=== PATIENT | female | born 1985 | race Caucasian/White ===

== ENCOUNTER 2024-03-08 09:42 | Emergency (ER) | payer OTHER, SELFPAY ==
[2024-03-08 09:45] VITALS: BP 144/84; PULSE 101; RESP 20; TEMP 36.5; O2SAT 96; BMI 44.0
--- NOTE | 2024-03-08 10:00 | PC.NURSE ---
dr cuello at bedside
--- NOTE | 2024-03-08 10:09 | CT_ITS ---
PROCEDURE INFORMATION: Exam: CT Maxillofacial With Contrast, Sinus Exam date and time: 03/08/2024 11:28 AM Age: 38 years old Clinical indication: Fever; Additional info: Fever, facial pain maxillary sinuses TECHNIQUE: Imaging protocol: CT Maxillofacial with intravenous contrast. Focus on the sinuses. Radiation optimization: All CT scans at this facility use at least one of these dose optimization techniques: automated exposure control; mA and/or kV adjustment per patient size (includes targeted exams where dose is matched to clinical indication); or iterative reconstruction. Contrast material: ISOVUE; Contrast volume: 100 ml; Contrast route: IV; COMPARISON: No relevant prior studies available. FINDINGS: Frontal sinuses: Normal. No air-fluid levels. Ethmoid sinuses: Bilateral ethmoid air cell inflammatory changes. Sphenoid sinuses: Normal. No air-fluid levels. Maxillary sinuses: Maxillary sinuses well aerated. Nasal cavity: Unremarkable. Orbital cavities: Orbits are normal. Globes are unremarkable. Bones: Unremarkable. Soft tissues: Unremarkable. IMPRESSION: Bilateral ethmoid air cell inflammatory changes.
--- NOTE | 2024-03-08 10:10 | XR_ITS ---
PROCEDURE INFORMATION: Exam: XR Chest Exam date and time: 03/08/2024 10:27 AM Age: 38 years old Clinical indication: Dyspnea TECHNIQUE: Imaging protocol: Radiologic exam of the chest. Views: 1 view. COMPARISON: No relevant prior studies available. FINDINGS: Lungs: Saw indistinct nodular density right mid lung zone as well as lateral to the left heart border inconclusive for pulmonary nodules. No acute infiltrates or overt CHF. Pleural spaces: Unremarkable. No pleural effusion. No pneumothorax. Heart/Mediastinum: Heart appears borderline enlarged. Bones/joints: Unremarkable for age. IMPRESSION: Borderline cardiomegaly with 2 small indistinct nodular densities for which follow-up nonemergent CT chest recommended for further assessment.
--- NOTE | 2024-03-08 10:13 | ED_ITS ---
Discharge Plan Disposition Patient Disposition: Home, Self-Care Prescriptions Prescriptions: New doxycycline hyclate 100 mg capsule 100 mg PO BID 10 Days Qty: 20 0RF Referrals Follow up/Referrals: Bethany Tamez APRN [Primary Care Provider] - See instructions Activity Restrictions/Add. Instructions Additional Instructions/Restrictions: Your symptoms are nonspecific but we will treat a working diagnosis of bacterial sinusitis given your facial pressure and symptoms that you are having. You have mild elevations in your transaminases/LFT please follow-up with primary care doctor to make sure that that is improving. The antibiotic doxycycline has been chosen to treat both your bacterial sinus infection and the possibility of a possible tickborne illness. No evidence of sepsis or meningitis. Please return to the primary care doctor or back to the emergency room with any significant worsening of her symptoms as discussed. Clinical Impressions Clinical Impression: Body aches, Cough, Rash and nonspecific skin eruption, Acute bacterial sinusitis, Abnormal transaminases Discharge ED Provider: Marcos Lee General Adult HPI General Chief complaint: Fever Stated complaint: rash on legs, stiff neck headache chills nausea Time Seen by Provider: 03/08/24 09:55 History of Present Illness HPI narrative: Patient is a 38-year-old female presents today with 1 week of intermittent fever. She has had bodyaches during this time as well. She went to her primary care doctor on Sunday and told her that she had facial pressure and some sinus congestion and was treated with azithromycin and steroids without any significant improvement. The patient states she has had some headache body aches told her primary care doctor she had some neck stiffness and that the primary care doctor told her that if she had a rash to come to the emergency department to be evaluated for meningitis. Patient subsequently developed a rash and was sent to the ED for this reason. However she states that 2 days ago she had a fever that broke Tmax was up to 102 but has been afebrile for the last 48 hours. She states she is able to move her head to the left and right without any significant discomfort she has no photophobia. She does not feel any significantly worse than she has recently. She states that her facial pressure has gotten worse she has significant pain with leaning forward. She also has had a cough. She denies any other past significant medical problems. No tick bite that she is aware. Related Data Previous Rx's Medication Instructions Recorded doxycycline hyclate 100 mg capsule 100 mg PO BID 10 days #20 caps 03/08/24 Allergies Allergy/AdvReac Type Severity Reaction Status Date / Time loracarbef [From Lorabid] Allergy Hives Verified 03/08/24 10:30 codeine AdvReac Other Verified 03/08/24 10:30 [facility] Disclaimer: The information contained in this section may have been updated after the patient was seen, as this information can be updated by other users. Social History Smoking Status: Current every day smoker alcohol intake: never current occupational status: other Travel in the last 8 weeks: None ROS Obtained: Yes All systems reviewed & no additional complaints except as documented Physical Exam General General appearance: alert Head Head exam: atraumatic and normocephalic Neck Neck exam: Present full ROM; Absent meningismus Respiratory Respiratory exam: Present normal lung sounds bilaterally; Absent respiratory distress Cardiovascular Cardiovascular exam: Present regular rate and normal rhythm Abdominal Exam Abdominal exam: Present soft; Absent distention or tenderness Extremities Exam Extremities exam: Present other (Diffuse macular erythematous rash no evidence of petechiae or purpura) Neurological Exam Neurological exam: Present alert, oriented X3, CN II-XII intact and normal gait; Absent motor sensory deficit Medical Decision Making Henrry Inquiry Pt receiving controlled substance: No Vital Signs: 03/08/24 09:45 03/08/24 10:32 03/08/24 11:00 Temperature 97.7 F Temperature Source Oral Pulse Rate 90 83 Pulse Rate [Right] 101 H Respiratory Rate 20 18 Blood Pressure 107/61 L 107/63 L Blood Pressure [Right Arm] 144/84 H Blood Pressure Mean 79 78 Blood Pressure Mean [Right Arm] 104 02 Sat by Pulse Oximetry 96 96 96 Oxygen Delivery Method Room Air 03/08/24 12:30 03/08/24 12:45 Temperature Temperature Source Oral Pulse Rate 74 Pulse Rate [Right] Respiratory Rate 18 Blood Pressure 105/70 L Blood Pressure [Right Arm] Blood Pressure Mean 80 Blood Pressure Mean [Right Arm] 02 Sat by Pulse Oximetry 96 Oxygen Delivery Method Lab Data Lab results reviewed: Yes I reviewed the patient's lab results. Lab Results 03/08/24 10:10: WBC 7.2, RBC 3.91 L, Hgb 12.2, Hct 36.3 L, MCV 92.8, MCH 31.3 H, MCHC 33.7, RDW 14.7, Plt Count 149, MPV 9.1, Neut % (Auto) 73.3, Lymph % (Auto) 22.6, [place] % (Auto) 3.6, Eos % (Auto) 0.3, Baso % (Auto) 0.2, Neut # (Auto) 5.3, Lymph # (Auto) 1.6, Pitt # (Auto) 0.3, Eos # (Auto) 0.0, Baso # (Auto) 0.0, ESR 35 H, Sodium 136, Potassium 3.1 L, Chloride 106, Carbon Dioxide 26, Anion Gap 7.1, BUN 11, Creatinine 0.80, Estimated Creat Clear 88, Estimated GFR 79, Est GFR ( Amer) 96, Glucose 131 H, Lactate 1.5, Calcium 8.0 L, Total Bilirubin 0.5, AST 82 H, ALT 135 H, Alkaline Phosphatase 93, C-Reactive Protein 64.8 H, Total Protein 6.3, Albumin 3.4 L, Globulin 2.9, Albumin/Globulin Ratio 1.2, Procalcitonin 0.175, Serum HCG, Qual Negative, Monoscreen Negative 03/08/24 10:22: Chlamy pneumoniae PCR Not detected, Adenovirus (PCR) Not detected, B. pertussis DNA (PCR) Not detected, Coronavirus OC43 (PCR) Not detected, Coronavirus HKU1 (PCR) Not detected, Coronavirus 229E (PCR) Not detected, SARS-CoV-2 (PCR) Not detected, Coronavirus NL63 (PCR) Not detected, Human Metapneumovir PCR Not detected, Influenza A (H1) PCR Not detected, Influ A (H1N1/09) PCR Not detected, Influenza A (H3) PCR Not detected, Influenza Type A (PCR) Not detected, Influenza Type B (PCR) Not detected, M. pneumoniae (PCR) Not detected, Parainfluenza 1 (PCR) Not detected, Parainfluenza 2 (PCR) Not detected, Parainfluenza 3 (PCR) Not detected, Parainfluenza 4 (PCR) Not detected, RSV (PCR) Not detected, Entero/Rhino (PCR) Not detected 03/08/24 12:06: Urine Color Yellow, Urine Appearance Clear, Urine pH 6.5, Ur Specific [place] <= 1.005, Urine Protein Negative, Urine Glucose (UA) Negative, Urine Ketones Negative, Urine Blood Negative, Urine Nitrate Negative, Urine Bilirubin Negative, Urine Urobilinogen 0.2, Ur Leukocyte Esterase Negative, Urine RBC None, Urine WBC Occasional, Ur Squamous Epith Cells 5-10, Urine Bacteria Trace 03/08/24 10:10 03/08/24 10:10 Orders (Tests/Meds): ED MEDICATIONS Discontinued Medications Generic Name Dose Route Start Last Admin Trade Name Freq PRN Reason Stop Dose Admin Lactated Ringer's 1,000 mls @ 999 mls/hr 03/08/24 10:15 03/08/24 10:26 Lactated Ringer's 1000 Ml Bag IV 03/08/24 11:15 999 mls/hr .Q1H1M RAFAEL Administration Iopamidol 100 ml 03/08/24 11:31 03/08/24 11:32 Iopamidol-370 (76%);100ml Bottle IV 03/08/24 11:32 100 ml ONCE ONE Administration Ketorolac Tromethamine 15 mg 03/08/24 10:09 03/08/24 10:26 Ketorolac 30mg/Ml Vial IV 03/08/24 10:10 15 mg ONCE ONE Administration Sodium Chloride 10 ml 03/08/24 11:31 03/08/24 11:32 Sodium Chloride 0.9% 10ml Syr (Rad Only) IV 03/08/24 11:32 10 ml ONCE ONE Administration ORDERS Category Date Time Status CT sinus w con Stat Cat Scan 03/08/24 10:09 Completed CXR --portable [XR chest portable] Stat Exams 03/08/24 10:10 Completed CBC w/Auto Diff [Complete Blood Count Auto Diff] Stat Lab 03/08/24 10:10 Completed CMP [Comprehensive Metabolic Panel] Stat Lab 03/08/24 10:10 Completed CRP [C-Reactive Protein] Stat Lab 03/08/24 10:10 Completed ESR [Erythrocyte Sedimentation Rate] Stat Lab 03/08/24 10:10 Completed Full Resp Panel w/COVID ([facility]) Routine Lab 03/08/24 10:22 Completed HCG Qualitative, Serum Stat Lab 03/08/24 10:10 Completed Lactic Acid Stat Lab 03/08/24 10:10 Completed Monoscreen (Rapid) Stat Lab 03/08/24 10:10 Completed Procalcitonin Stat Lab 03/08/24 10:10 Completed UA [Urinalysis and Microscopic] Stat Lab 03/08/24 12:06 Completed Blood Culture Stat Micro 03/08/24 10:10 Received Medical Decision Narrative: Well-appearing 38-year-old female presenting today with 1 week of intermittent fevers and chills now with a macular rash. Rash appears to be most consistent with an exanthem of a virus. Patient is nontoxic in appearance has no meningismus I do not suspect bacterial meningitis viral meningitis is also very unlikely. She has had a cough and sinus pressure most likely a viral upper respiratory infection possibly with superimposed bacterial sinusitis. Given the duration of symptoms we will get a CT scan of her face to evaluate for any bony erosion etc. Also get a chest x-ray to evaluate for pneumonia. Blood cultures urinalysis also being performed in addition to full respiratory viral panel. She has been reassured and feels much better that we would not be working up meningitis and that that is very unlikely at the moment. Tickborne illnesses are on the differential but no definitive tick bite. Will attempt alternative diagnosis at the moment and will reassess after IV fluids Toradol workup is complete. Reassessment 12:[address] scan was performed on first interpreted shows no definitive significant air-fluid levels or thickening of the sinuses. There is some nonspecific ethmoid inflammatory change but this is not in the location where she has symptoms working diagnosis will still be bacterial sinusitis. Chest x-ray performed I personally interpreted which shows no acute cardiopulmonary emergency. Labs otherwise unremarkable Monospot negative full respiratory viral panel negative she does have nonspecific inflammatory markers that are elevated but no evidence of sepsis. She looks very good and nontoxic on my reassessment and is feeling better. I will prescribe doxycycline which will both cover bacterial sinus infection as well as possible tickborne illnesses which I did not send any titers or infectious workup for. Blood cultures have been sent. She has been given return precautions there remains some diagnostic uncertainty and she is aware of this. Other causes of fever such as malignancy or rheumatologic conditions etc. are still in the differential and she is aware that if her fever returns and continues to be refractory that she is to return for hospitalization. Patient was discharged in stable and improved condition. On serial neurologic assessments she has normal has no evidence of meningismus is very nontoxic meningitis do very well likely longoria and risk of a lumbar puncture I think far outweighs any benefit at the moment. Critical Care Critical Care Time Critical Care Time: No
--- NOTE | 2024-03-08 10:23 | PC.NURSE ---
covid swab sent to lab
[2024-03-08 10:25] LABS: Adenovirus,PCR Not Detected (NotDetected); Bordetella Pertussis Not Detected (NotDetected); Chlamydophila Pneumoniae, PCR Not Detected (NotDetected); Coronavirus 19, PCR Not Detected (NotDetected); Coronavirus 229E Not Detected (NotDetected); Coronavirus NL63 Not Detected (NotDetected); Coronavirus OC43 Not Detected (NotDetected); Coronovirus HKU1,PCR Not Detected (NotDetected); Human Metapneumovirus Not Detected (NotDetected); Influenza A, PCR Not Detected (NotDetected); Influenza AH1, 2009 Not Detected (NotDetected); Influenza AH1, PCR Not Detected (NotDetected); Influenza AH3,PCR Not Detected (NotDetected); Influenza B, PCR Not Detected (NotDetected); Mycoplasma Pneumoniae, PCR Not Detected (NotDetected); Parainfluenza 1, PCR Not Detected (NotDetected); Parainfluenza 2, PCR Not Detected (NotDetected); Parainfluenza 3, PCR Not Detected (NotDetected); Parainfluenza 4, PCR Not Detected (NotDetected); Respiratory Syncytial Virus Not Detected (NotDetected); Rhinovirus/Enterovirus Not Detected (NotDetected)
[2024-03-08 10:25] LABS: Basophils % 0.2 % (0.1-2.0); Eosinophils % 0.3 % (0.1-12.0); Hematocrit 36.3 % (37.0-47.0); Hemoglobin 12.2 g/dL (12.2-16.2); Lymphocytes # 1.6 K/mm3 (0.7-4.5); Lymphocytes % 22.6 % (10-50); Mean Corpuscular HGB Conc 33.7 g/dL (31.8-35.4); Mean Corpuscular Hemoglobin 31.3 pg (27.0-31.2); Mean Corpuscular Volume 92.8 fl (81-99); Mean Platelet Volume 9.1 fl (7.4-10.4); Monocytes # 0.3 K/mm3 (0.1-1.0); Monocytes % 3.6 % (1.7-9.3); Neutrophils # 5.3 K/mm3 (1.8-7.8); Neutrophils % 73.3 % (37.0-80.0); Platelet Count 149 K/mm3 (142-424); Red Blood Count 3.91 M/mm3 (4.20-5.40); Red Cell Distribution Width 14.7 % (11.5-17.5); White Blood Count 7.2 K/mm3 (4.8-10.8)
[2024-03-08] MEDS: LACTATED RINGERS 1000ML 1,000 ML 999 ML IV (10:26)
[2024-03-08] MEDS: KETOROLAC 30MG/ML VIAL 15 MG IV (10:26)
[2024-03-08 10:32] VITALS: BP 107/61; PULSE 90; O2SAT 96
[2024-03-08 10:35] LABS: Alanine Aminotransferase 135 U/L (12-78); Albumin Level 3.4 g/dl (3.5-5.0); Albumin/Globulin Ratio 1.2 (1.1-1.8); Alkaline Phosphatase 93 U/L (38-126); Anion Gap 7.1 mEq/L (5-15); Aspartate Amino Transferase 82 U/L (14-36); Bilirubin,Total 0.5 mg/dl (0.2-1.3); Blood Urea Nitrogen 11 mg/dl (7-17); Carbon Dioxide 26 mmol/L (22.0-30.0); Chloride 106 mmol/L (98-107); Creatinine Clearance Estimated 88 mL/min (50-200); Estimated Glomerular Filt Rate 79 ml/min (>60); GFR (African American) 96 ML/MIN (>60); Globulin 2.9 g/dL (1.3-3.2); Glucose 131 mg/dl (74-100); Potassium 3.1 mmoL/L (3.5-5.1); Sodium 136 mmol/L (136-145); Total Protein,Serum 6.3 g/dl (6.3-8.2)
[2024-03-08 10:36] LABS: Lactic Acid 1.5 mmol/L (0.7-2.1)
[2024-03-08 10:41] LABS: C-Reactive Protein 64.8 mg/L (0-4)
[2024-03-08 10:43] LABS: Monoscreen (Rapid) Negative (Negative)
[2024-03-08 10:51] LABS: HCG Qualitative, Serum Negative (Negative)
[2024-03-08 10:54] LABS: Procalcitonin 0.175 ng/mL (0.0-2.0)
[2024-03-08 11:00] VITALS: BP 107/63; PULSE 83; RESP 18; O2SAT 96
[2024-03-08 11:09] LABS: Erythrocyte Sedimentation Rate 35 mm/hr (0-20)
--- NOTE | 2024-03-08 11:21 | PC.NURSE ---
pt to rad
--- NOTE | 2024-03-08 11:31 | PC.NURSE ---
pt back to room from [facility]
[2024-03-08] MEDS: IOPAMIDOL-370 (76%);100ML BOTTLE 100 ML IV (11:32)
[2024-03-08] MEDS: SODIUM CHLORIDE 0.9% 10ML SYR (RAD ONLY) 10 ML IV (11:32)
--- NOTE | 2024-03-08 12:02 | PC.NURSE ---
pt ambulatory to restroom without complications
--- NOTE | 2024-03-08 12:07 | PC.NURSE ---
pt reports her rash has now spread up her arms and onto her chest; Dr. Lee has been notified.
[2024-03-08 12:09] LABS: Microscopic, Urine URINE MICROSCOPIC (MICROSCOPIC)
[2024-03-08 12:11] LABS: Appearance,Urine CLEAR (Clear); Bilirubin,Urine Negative (Negative); Blood, Urine Negative (Negative); Color,Urine YELLOW (Yellow); Glucose,Urine (UA) Negative (Negative); Ketones,Urine Negative (Negative); Leukocyte Esterase,Urine Negative (Negative); Nitrate,Urine Negative (Negative); PH,Urine 6.5 (5.0-8.5); Protein,Urine Negative (Negative); Specific Gravity, Urine <= 1.005 (1.005-1.030); Urobilinogen,Urine 0.2 EU/dl (0.2)
[2024-03-08 12:30] VITALS: BP 105/70; PULSE 74; RESP 18; O2SAT 96
[2024-03-08 12:32] LABS: Bacteria,Urine Trace /lpf; WBC,Urine Occasional #/hpf (0-3)
--- NOTE | 2024-03-08 12:44 | PC.NURSE ---
Dr. Lee at bedside
[2024-03-08 13:02] VITALS: BP 105/71; PULSE 80; RESP 18; TEMP 36.8; O2SAT 98
== END 2024-03-08 13:05 | disposition home or self-care (01) ==
PROVIDERS: Emergency Provider Student in an Organized Health Care Education/Training Program; PCP Nurse Practitioner
DX: J01.80 Other acute sinusitis (principal); A49.9 Bacterial infection, unspecified; E87.6 Hypokalemia; R74.01 Elevation of levels of liver transaminase levels; R05.9 Cough, unspecified; R21 Rash and other nonspecific skin eruption; F17.210 Nicotine dependence, cigarettes, uncomplicated
CPT/HCPCS: 70487; 71045; 80053; 81001; 83605; 84145; 84703; 85025; 85651; 86140; 86318; 87040; 87581; 87632; 87635; 87798; 96361; 96374; 99284; J1885; J7120; Q9967

== ENCOUNTER 2024-10-28 11:51 | Emergency (ER) | payer OTHER, SELFPAY ==
[2024-10-28 11:51] VITALS: BP 175/66; PULSE 77; RESP 19; TEMP 36.7; O2SAT 100; BMI 42.3
--- NOTE | 2024-10-28 11:54 | ECG_ITS ---
APPROVED REPORT Exam: Resting ECG HR:68 bpm ECG Measurements Heart Rate 68 AXES NE 148 P 57 QRSd 93 QRS -28 QT 411 T 1 QTc 428 Conclusion Sinus rhythm Old ischemic change Electronically signed by : RUSTAM WELCH, 10/28/2024 14:47:32
--- NOTE | 2024-10-28 12:00 | HMH.EDGENADL ---
Discharge Plan Disposition Patient Disposition: Home, Self-Care Condition: Good Prescriptions Prescriptions: No Action doxycycline hyclate 100 mg capsule 100 mg PO BID 10 Days Qty: 20 0RF Referrals Follow up/Referrals: Bethany Tamez APRN [Primary Care Provider] - See instructions Activity Restrictions/Add. Instructions Additional Instructions/Restrictions: As we discussed please contact your microbiology manager for follow-up as soon as they are available. If you have any worsening signs or symptoms please return to the ER as needed including increasing pain inability to tolerate oral intake. I recommend continuing the regimen that you are on with Protonix twice a day famotidine twice a day and avoid times. Also recommend sitting up for 30 minutes to an hour after any eating. Clinical Impressions Clinical Impression: Acute epigastric pain Print Language Print Language: Japanese Discharge ED Provider: Cholo Campo General Adult HPI <ANETTE Ordaz - Last Filed: 10/28/24 14:08> General Chief complaint: Chest Pain Stated complaint: Chest Pain Time Seen by Provider: 10/28/24 11:59 History of Present Illness HPI narrative: Patient presents for evaluation of heartburn . Patient states that she has a known history of Cross's esophagus and around 10:00 last night began having an episode of burning epigastric discomfort. She took Protonix last night and again this morning without relief. Patient states that the pain woke her up from sleep last night. It has been persistent since 10 PM last night. She then took famotidine [id number] again without relief. It is not radiated it does not have any worsening or relieving factors. Patient is tolerant of oral intake and does not change the character of the pain. She does not have a history of cardiovascular disease and denies shortness of breath hemoptysis hematochezia melena reports nausea and vomiting last night but none today and no diarrhea. Additionally, patient reports that approximately 2 hours prior to presentation she began having right upper arm pain and tingling in her thumb and index finger. Patient denies loss of motor or sensory. Related Data Previous Rx's ?Medication ?Instructions ?Recorded doxycycline hyclate 100 mg capsule 100 mg PO BID 10 days #20 caps 03/08/24 Allergies Allergy/AdvReac Type Severity Reaction Status Date / Time loracarbef (From Lorabid) Allergy Hives Verified 03/08/24 10:30 codeine AdvReac Other Verified 03/08/24 10:30 PFSH <ANETTE Ordaz - Last Filed: 10/28/24 14:08> PFS Disclaimer: The information contained in this section may have been updated after the patient was seen, as this information can be updated by other users. Social History (Updated 03/08/24 @ 12:54 by Marcos Lee MD) Smoking Status: Current every day smoker alcohol intake: never current occupational status: other Travel in the last 8 weeks: None Have you lived/traveled outside [place] in past 30 days?: No Contact w/someone who lives/traveled outside US past 30 days?: No Exposure to someone with infectious disease in past 14 days?: No Do you have a fever (greater than 100.4 F or 38 C)?: No Have you tested positive for COVID-19: No Exposed to someone with COVID-19 in past 14 days?: No Do you have a sore throat?: No Do you have a cough?: No Do you have any weakness?: No Do you have any diarrhea?: No Are you experiencing any unusual bleeding?: No Do you have any muscle aches/pain?: No Do you have any abdominal pain?: No Are you experiencing loss of taste or smell?: No <ANETTE Ordaz - Last Filed: 10/28/24 14:08> ROS Obtained: Yes Systems reviewed as appropriate & no additional complaints except as documented Physical Exam <ANETTE Ordaz - Last Filed: 10/28/24 14:08> General General appearance: alert and in no apparent distress Respiratory Respiratory exam: Present normal lung sounds bilaterally Cardiovascular Cardiovascular exam: Present regular rate Neurological Exam Neurological exam: Present alert and oriented X3 Medical Decision Making <ANETTE Ordaz - Last Filed: 10/28/24 14:08> Medical Records Medical records reviewed: Yes I reviewed the patient's medical records. Screening: Per USPSTF and CDC recommendations, given the prevalence of disease in our region, it is our hospital?s policy to screen for HIV and viral Hepatitis for all patients aged 18 and over and those with ongoing risk factors. Henrry Inquiry Pt receiving controlled substance: No Vital Signs: 10/28/24 11:51 10/28/24 13:00 10/28/24 13:02 Temperature 98.0 F Temperature Source Oral Pulse Rate 77 72 Pulse Rate [Right] 77 Respiratory Rate 19 Blood Pressure 100/49 L 109/63 L Blood Pressure [Right Arm] 175/66 H Blood Pressure Mean 66 72 Blood Pressure Mean [Right Arm] 102 Blood Pressure Source [Right Arm] Automatic Cuff 02 Sat by Pulse Oximetry 100 97 99 Oxygen Delivery Method Room Air 10/28/24 14:43 Temperature 98.4 F Temperature Source Pulse Rate 72 Pulse Rate [Right] Respiratory Rate 18 Blood Pressure 109/63 L Blood Pressure [Right Arm] Blood Pressure Mean Blood Pressure Mean [Right Arm] Blood Pressure Source [Right Arm] 02 Sat by Pulse Oximetry Oxygen Delivery Method Lab Data Lab results reviewed: Yes I reviewed the patient's lab results. Lab Results 10/28/24 12:22: WBC 12.9 H, RBC 4.90, Hgb 15.2, Hct 44.1, MCV 90.0, MCH 31.0, MCHC 34.5, RDW 12.6, Plt Count 259, MPV 9.3, Neut % (Auto) 64.7, Lymph % (Auto) 27.3, Benzie % (Auto) 6.7, Eos % (Auto) 0.7, Baso % (Auto) 0.3, Neut # (Auto) 8.3 H, Lymph # (Auto) 3.5, Benzie # (Auto) 0.9, Eos # (Auto) 0.1, Baso # (Auto) 0.0, Sodium 138, Potassium 3.8, Chloride 105, Carbon Dioxide 27, Anion Gap 9.8, BUN 12, Creatinine 0.90, Estimated Creat Clear 80, Estimated GFR 69, Est GFR ( Amer) 83, Glucose 92, Calcium 8.9, Total Bilirubin 0.4, AST 32, ALT 32, Alkaline Phosphatase 78, Troponin I < 0.01, Total Protein 7.2, Albumin 4.5, Globulin 2.7, Albumin/Globulin Ratio 1.7, Lipase 104, HCV Ab ED w/Rflx PCR Qn Negative, HIV Ag/Ab Combo Qual Negative 10/28/24 12:22 10/28/24 12:22 Orders (Tests/Meds): ED MEDICATIONS Discontinued Medications Generic Name Dose Route Start Last Admin Trade Name Freq PRN Reason Stop Dose Admin Acetaminophen 1,000 mg 10/28/24 12:24 10/28/24 12:42 Acetaminophen 1,000mg/100ml Vial IV 10/28/24 12:25 1,000 mg ONCE ONE Administration Belladonna Alkaloids 60 ml 10/28/24 12:24 10/28/24 12:42 Belladonna Alkaloids 60 Ml Ml PO 10/28/24 12:25 60 ml ONCE ONE Administration Dexamethasone Sodium Phosphate 10 mg 10/28/24 13:58 10/28/24 14:07 Dexamethasone 4mg/Ml 5ml Mdv IV 10/28/24 13:59 10 mg ONCE ONE Administration Sodium Chloride 1,000 mls @ 999 mls/hr 10/28/24 12:24 10/28/24 12:42 Sod Chlor 0.9% 1000ml Bag IV 10/28/24 13:24 999 mls/hr .Q1H1M ONE Administration Iopamidol 75 ml 10/28/24 12:49 10/28/24 12:56 Iopamidol-370 (76%);100ml Bottle IV 10/28/24 12:50 75 ml ONCE ONE Administration Ketorolac Tromethamine 15 mg 10/28/24 13:58 10/28/24 14:05 Ketorolac 30mg/Ml Vial IV 10/28/24 13:59 15 mg ONCE ONE Administration Ondansetron HCl 4 mg 10/28/24 12:24 10/28/24 12:42 Ondansetron 4mg/2ml Vial IV 10/28/24 12:25 4 mg ONCE ONE Administration Sodium Chloride 10 ml 10/28/24 12:49 10/28/24 12:56 Sodium Chloride 0.9% 10ml Syr (Rad Only) IV 10/28/24 12:50 10 ml ONCE ONE Administration ORDERS Category Date Time Status CT abdomen pelvis w con Stat Cat Scan 10/28/24 12:25 Completed CXR --portable [XR chest portable] Stat Exams 10/28/24 12:02 Completed Complete Blood Count Auto Diff Stat Lab 10/28/24 12:22 Completed Comprehensive Metabolic Panel Stat Lab 10/28/24 12:22 Completed HIV Combo Stat Lab 10/28/24 12:22 Completed Hepatitis C Ab Qual. W/ RFX Stat Lab 10/28/24 12:22 Completed Lipase Stat Lab 10/28/24 12:22 Completed Troponin I Q3H Lab 10/28/24 15:15 Ordered Troponin I Q3H Lab 10/28/24 18:15 Ordered Troponin I Stat Lab 10/28/24 12:22 Completed HEART Score History (anamnesis): Slightly suspicious ECG: Normal Age: <45 years Risk factors: 3 or more risk factors Troponin: </= normal limit HEART Score: 2 Medical Decision Narrative: In summary patient is a 39-year-old female who presents to the emergency department for evaluation of epigastric abdominal pain and self-described heartburn .. Patient is hemodynamically stable with a blood pressure 175/66 pulse 77 normal sinus rhythm on the bedside monitor breathing 18 times a minute satting at 100% room air upon arrival, afebrile at 98.0. Physical exam is remarkable for discomfort on palpation of the epigastrium but no focal tenderness rebound or guarding or rigidity with normal bowel sounds. There is no pain on palpation on the chest wall. Breath sounds clear and equal bilaterally to the bases without adventitious sounds. Examination of the left upper extremity reveals no palpable pain of the shoulder girdle or elbow and patient has full range of motion of the left upper extremity with no provoking of her symptoms. She does have reproducible tingling on tapping of the median nerve however.. Differential diagnosis includes esophagitis versus gastritis versus ulcer versus pancreatitis versus ACS versus paresthesia versus versus carpal tunnel syndrome versus radiculopathy versus referred pain etc. Initial workup will be conducted with hematologic labs CT scan abdomen pelvis plain film chest x-ray twelve-lead EKG. Initial interventions include crystalloid bolus and GI cocktail for now. Initial workup reviewed by me and her hematologic labs are nonactionable with a negative troponin and more than 12 hours of symptoms a single undetectable troponin suggests noncardiac/ACS cause, lipase is normal, and my informal interpretation of both her chest x-ray and CT abdomen pelvis shows no acute processes. Upon repeat evaluation patient reports that the discomfort in her fingers is gone as well as the rest of her left upper extremity however the burning sensation in the epigastrium has not been changed by any of her interventions. Given this there remains diagnostic uncertainty as the cause but certainly gastrointestinal source could be the source despite no response to GI cocktail. Thus I have advised the patient is to stop taking times continue with her Protonix and H2 jesus regimen and close follow-up with an outpatient with her microbiology manager. Patient verbalized understanding and agreement with strict return precautions. <Cholo Campo MD - Last Filed: 10/28/24 14:44> Vital Signs: 10/28/24 11:51 10/28/24 13:00 10/28/24 13:02 Temperature 98.0 F Temperature Source Oral Pulse Rate 77 72 Pulse Rate [Right] 77 Respiratory Rate 19 Blood Pressure 100/49 L 109/63 L Blood Pressure [Right Arm] 175/66 H Blood Pressure Mean 66 72 Blood Pressure Mean [Right Arm] 102 Blood Pressure Source [Right Arm] Automatic Cuff 02 Sat by Pulse Oximetry 100 97 99 Oxygen Delivery Method Room Air 10/28/24 14:43 Temperature 98.4 F Temperature Source Pulse Rate 72 Pulse Rate [Right] Respiratory Rate 18 Blood Pressure 109/63 L Blood Pressure [Right Arm] Blood Pressure Mean Blood Pressure Mean [Right Arm] Blood Pressure Source [Right Arm] 02 Sat by Pulse Oximetry Oxygen Delivery Method Lab Data Lab Results 10/28/24 12:22: WBC 12.9 H, RBC 4.90, Hgb 15.2, Hct 44.1, MCV 90.0, MCH 31.0, MCHC 34.5, RDW 12.6, Plt Count 259, MPV 9.3, Neut % (Auto) 64.7, Lymph % (Auto) 27.3, Benzie % (Auto) 6.7, Eos % (Auto) 0.7, Baso % (Auto) 0.3, Neut # (Auto) 8.3 H, Lymph # (Auto) 3.5, Benzie # (Auto) 0.9, Eos # (Auto) 0.1, Baso # (Auto) 0.0, Sodium 138, Potassium 3.8, Chloride 105, Carbon Dioxide 27, Anion Gap 9.8, BUN 12, Creatinine 0.90, Estimated Creat Clear 80, Estimated GFR 69, Est GFR ( Amer) 83, Glucose 92, Calcium 8.9, Total Bilirubin 0.4, AST 32, ALT 32, Alkaline Phosphatase 78, Troponin I < 0.01, Total Protein 7.2, Albumin 4.5, Globulin 2.7, Albumin/Globulin Ratio 1.7, Lipase 104, HCV Ab ED w/Rflx PCR Qn Negative, HIV Ag/Ab Combo Qual Negative Orders (Tests/Meds): ED MEDICATIONS Discontinued Medications Generic Name Dose Route Start Last Admin Trade Name Freq PRN Reason Stop Dose Admin Acetaminophen 1,000 mg 10/28/24 12:24 10/28/24 12:42 Acetaminophen 1,000mg/100ml Vial IV 10/28/24 12:25 1,000 mg ONCE ONE Administration Belladonna Alkaloids 60 ml 10/28/24 12:24 10/28/24 12:42 Belladonna Alkaloids 60 Ml Ml PO 10/28/24 12:25 60 ml ONCE ONE Administration Dexamethasone Sodium Phosphate 10 mg 10/28/24 13:58 10/28/24 14:07 Dexamethasone 4mg/Ml 5ml Mdv IV 10/28/24 13:59 10 mg ONCE ONE Administration Sodium Chloride 1,000 mls @ 999 mls/hr 10/28/24 12:24 10/28/24 12:42 Sod Chlor 0.9% 1000ml Bag IV 10/28/24 13:24 999 mls/hr .Q1H1M ONE Administration Iopamidol 75 ml 10/28/24 12:49 10/28/24 12:56 Iopamidol-370 (76%);100ml Bottle IV 10/28/24 12:50 75 ml ONCE ONE Administration Ketorolac Tromethamine 15 mg 10/28/24 13:58 10/28/24 14:05 Ketorolac 30mg/Ml Vial IV 10/28/24 13:59 15 mg ONCE ONE Administration Ondansetron HCl 4 mg 10/28/24 12:24 10/28/24 12:42 Ondansetron 4mg/2ml Vial IV 10/28/24 12:25 4 mg ONCE ONE Administration Sodium Chloride 10 ml 10/28/24 12:49 10/28/24 12:56 Sodium Chloride 0.9% 10ml Syr (Rad Only) IV 10/28/24 12:50 10 ml ONCE ONE Administration ORDERS Category Date Time Status CT abdomen pelvis w con Stat Cat Scan 10/28/24 12:25 Completed CXR --portable [XR chest portable] Stat Exams 10/28/24 12:02 Completed Complete Blood Count Auto Diff Stat Lab 10/28/24 12:22 Completed Comprehensive Metabolic Panel Stat Lab 10/28/24 12:22 Completed HIV Combo Stat Lab 10/28/24 12:22 Completed Hepatitis C Ab Qual. W/ RFX Stat Lab 10/28/24 12:22 Completed Lipase Stat Lab 10/28/24 12:22 Completed Troponin I Q3H Lab 10/28/24 15:15 Ordered Troponin I Q3H Lab 10/28/24 18:15 Ordered Troponin I Stat Lab 10/28/24 12:22 Completed ECG Data Tracing #1: I reviewed this ECG and interpreted as documented below: (Sinus rhythm 68 bpm with VT interval 148, QRS 93, QTc 428. No acute ischemic change. Leftward axis) HEART Score HEART Score: 2 Medical Decision Narrative: In summary patient is a 39-year-old female who presents to the emergency department for evaluation of epigastric abdominal pain and self-described heartburn .. Patient is hemodynamically stable with a blood pressure 175/66 pulse 77 normal sinus rhythm on the bedside monitor breathing 18 times a minute satting at 100% room air upon arrival, afebrile at 98.0. Physical exam is remarkable for discomfort on palpation of the epigastrium but no focal tenderness rebound or guarding or rigidity with normal bowel sounds. There is no pain on palpation on the chest wall. Breath sounds clear and equal bilaterally to the bases without adventitious sounds. Examination of the left upper extremity reveals no palpable pain of the shoulder girdle or elbow and patient has full range of motion of the left upper extremity with no provoking of her symptoms. She does have reproducible tingling on tapping of the median nerve however.. Differential diagnosis includes esophagitis versus gastritis versus ulcer versus pancreatitis versus ACS versus paresthesia versus versus carpal tunnel syndrome versus radiculopathy versus referred pain etc. Initial workup will be conducted with hematologic labs CT scan abdomen pelvis plain film chest x-ray twelve-lead EKG. Initial interventions include crystalloid bolus and GI cocktail for now. Initial workup reviewed by me and her hematologic labs are nonactionable with a negative troponin and more than 12 hours of symptoms a single undetectable troponin suggests noncardiac/ACS cause, lipase is normal, and my informal interpretation of both her chest x-ray and CT abdomen pelvis shows no acute processes. Upon repeat evaluation patient reports that the discomfort in her fingers is gone as well as the rest of her left upper extremity however the burning sensation in the epigastrium has not been changed by any of her interventions. Given this there remains diagnostic uncertainty as the cause but certainly gastrointestinal source could be the source despite no response to GI cocktail. Thus I have advised the patient is to stop taking times continue with her Protonix and H2 jesus regimen and close follow-up with an outpatient with her microbiology manager. Patient verbalized understanding and agreement with strict return precautions. I was consulted by the CESAR, and we discussed the complexity of the problems being addressed. I approved the treatment and management plan for this patient's care in the Emergency Department, thus performing a substantive portion of the medical decision making. Cholo Campo MD Critical Care <ANETTE Ordaz - Last Filed: 10/28/24 14:08> Critical Care Time Critical Care Time: No
--- NOTE | 2024-10-28 12:02 | XR_ITS ---
FINAL REPORT CLINICAL HISTORY: Nonspecific chest pain COMPARISON: 03/08/2024 FINDINGS: A single frontal view of the chest was obtained. No acute pulmonary opacity is present. There is no evidence of effusion or pneumothorax. Mediastinum is unremarkable. Heart size is normal. IMPRESSION: No acute abnormality. Reviewed, Interpreted and Dictated by Sarah Carson MD Transcribed by Bia Kraus Authenticated and [facility]
--- NOTE | 2024-10-28 12:22 | PC.NURSE ---
XR AT BEDSIDE
--- NOTE | 2024-10-28 12:25 | CT_ITS ---
FINAL REPORT TECHNIQUE: IV contrast enhanced exam. Coronal and sagittal images were obtained and reviewed. This study was performed with techniques to keep radiation doses as low as reasonably achievable, (ALARA). Individualized dose reduction techniques using automated exposure control or adjustment of mA and/or kV according to the patient''s size were employed. CLINICAL HISTORY: Epigastric abdominal pain COMPARISON: None FINDINGS: Abdomen: No acute density is seen within the lung bases. Post cholecystectomy changes are noted. Solid abdominal organs are unremarkable. No bowel obstruction is present. There is no free air. No fluid collection is seen. There is no adenopathy. Pelvis: The appendix is normal. No bowel wall thickening is present. The uterus and ovaries are normal. The urinary bladder is unremarkable. There is no free fluid. No pelvic mass is seen. IMPRESSION: No acute findings. Reviewed, Interpreted and Dictated by Sarah Carson MD Transcribed by Bia Kraus Authenticated and [facility]
[2024-10-28 12:29] LABS: Basophils % 0.3 % (0.1-2.0); Eosinophils # 0.1 K/mm3 (0.0-0.4); Eosinophils % 0.7 % (0.1-12.0); Hematocrit 44.1 % (37.0-47.0); Hemoglobin 15.2 g/dL (12.2-16.2); Lymphocytes # 3.5 K/mm3 (0.7-4.5); Lymphocytes % 27.3 % (10-50); Mean Corpuscular HGB Conc 34.5 g/dL (31.8-35.4); Mean Platelet Volume 9.3 fl (7.4-10.4); Monocytes # 0.9 K/mm3 (0.1-1.0); Monocytes % 6.7 % (1.7-9.3); Neutrophils # 8.3 K/mm3 (1.8-7.8); Neutrophils % 64.7 % (37.0-80.0); Platelet Count 259 K/mm3 (142-424); Red Cell Distribution Width 12.6 % (11.5-17.5); White Blood Count 12.9 K/mm3 (4.8-10.8)
--- NOTE | 2024-10-28 12:29 | PC.NURSE ---
Established 18ga IV in patients L AC, blood drawn and sent to lab.
[2024-10-28 12:35] LABS: Albumin Level 4.5 g/dl (3.5-5.0); Chloride 105 mmol/L (98-107); Potassium 3.8 mmoL/L (3.5-5.1); Sodium 138 mmol/L (136-145)
[2024-10-28 12:37] LABS: Lipase 104 U/L (23-300)
[2024-10-28 12:38] LABS: Alanine Aminotransferase 32 U/L (12-78); Albumin/Globulin Ratio 1.7 (1.1-1.8); Alkaline Phosphatase 78 U/L (38-126); Anion Gap 9.8 mEq/L (5-15); Aspartate Amino Transferase 32 U/L (14-36); Bilirubin,Total 0.4 mg/dl (0.2-1.3); Blood Urea Nitrogen 12 mg/dl (7-17); Calcium 8.9 mg/dl (8.4-10.2); Carbon Dioxide 27 mmol/L (22.0-30.0); Creatinine Clearance Estimated 80 mL/min (50-200); Estimated Glomerular Filt Rate 69 ml/min (>60); GFR (African American) 83 ML/MIN (>60); Globulin 2.7 g/dL (1.3-3.2); Glucose 92 mg/dl (74-100); Total Protein,Serum 7.2 g/dl (6.3-8.2)
[2024-10-28] MEDS: BELLADONNA ALKALOIDS 60 ML ML PO (12:42)
[2024-10-28] MEDS: ACETAMINOPHEN 1,000MG/100ML VIAL 1000 MG IV (12:42)
[2024-10-28] MEDS: 0.9 % SODIUM CHLORIDE 1000ML 1,000 ML 999 ML IV (12:42)
[2024-10-28] MEDS: ONDANSETRON 4MG/2ML VIAL 4 MG IV (12:42)
[2024-10-28 12:52] LABS: Troponin I < 0.01 ng/ml (0.00-0.034)
[2024-10-28] MEDS: SODIUM CHLORIDE 0.9% 10ML SYR (RAD ONLY) 10 ML IV (12:56)
[2024-10-28] MEDS: IOPAMIDOL-370 (76%);100ML BOTTLE 75 ML IV (12:56)
[2024-10-28 13:00] VITALS: BP 100/49; PULSE 77; O2SAT 97
[2024-10-28 13:02] VITALS: BP 109/63; PULSE 72; O2SAT 99
[2024-10-28 13:49] LABS: HIV Combo NEGATIVE (Negative)
[2024-10-28 13:58] LABS: Hepatitis C Ab Qual. W/ RFX NEGATIVE (Negative)
[2024-10-28] MEDS: KETOROLAC 30MG/ML VIAL 15 MG IV (14:05)
[2024-10-28] MEDS: DEXAMETHASONE 4MG/ML 5ML MDV 10 MG IV (14:07)
[2024-10-28 14:43] VITALS: BP 109/63; PULSE 72; RESP 18; TEMP 36.9; O2SAT 99
== END 2024-10-28 14:44 | disposition home or self-care (01) ==
PROVIDERS: Physician Assistant; Emergency Provider Emergency Medicine; PCP Nurse Practitioner
DX: R10.13 Epigastric pain (principal); R07.9 Chest pain, unspecified; R20.2 Paresthesia of skin; M79.601 Pain in right arm; Z72.0 Tobacco use
CPT/HCPCS: 71045; 74177; 80053; 83690; 84484; 85025; 86803; 87389; 93005; 96361; 96374; 96375; 99285; J0131; J1100; J1885; J2405; J7030; Q9967

== ENCOUNTER → 2025-01-27 11:05 | Outpatient (CLI) | payer OTHER, SELFPAY ==
--- OUTSIDE RECORDS SUMMARY | 2025-01-27 11:07 | XMS_ITS | Data Portability ---
Author Organization [facility] & [place], [facility] Address [address] [place] [address] Care Team Providers Care Physician Scientist Name Role Phone PRIMARY PLUS - BROOK Primary Care Provider Assessment No assessment recorded. Plan of Treatment Reminders Order Date Submit Date Provider Last Modified By Organization Details Last Modified Time Details Appointments None record ed. Lab None record ed. Referral None record ed. Procedures None record ed. Surgeries None record ed. Imaging None record ed. Medication Orders None record ed. Patient TargetsNo targets recorded. Patient InstructionsNo instructions recorded. Reason for Referral None Reported. Procedures Surgical History Date Name Laterality Status Provider Name and Address Organization Details Recorded Time 08/27/19 Thyroid Surgery completed Wanda LEVINE [facility] & [place] 11/27/2024 13:13:33 08/27/18 94 ENT Surgery completed Wanda LEVINE [facility] & [place] 11/27/2024 13:13:33 08/27/18 94 Tonsillectomy/Adeno idectomy completed Wandacullen LEVINE [facility] & [place] 11/27/2024 13:13:33 hernia repair completed Wanda LEVINE [facility] & [place] 11/27/2024 13:16:13 ligation of fallopian tube completed Wanda LEVINE [facility] & [place] 11/27/2024 13:16:23 cholecystectomy completed Wanda LEVINE [facility] & [place] 11/27/2024 13:16:30 loop electrosurgical excision procedure completed Wanda LEVINE [facility] & [place] 11/27/2024 13:18:08 Imaging Results None recorded. Procedure Notes None recorded. Medical Equipment None Reported. Allergies Allergen ID Allergen Name Allergen Category Reaction Reaction Severity Criticality Documentation Date Start Date Code Code System Note Provider Name and Address Organization Details Recorded Time [id number] codeine medicatio n Not available Not available Not available 11/27/2024 2670 RxNorm Wanda ceja, ABNER PINEDA [facility] & [place] 13:14:15 405011 aspirin medicatio n Not available Not available Not available 11/27/2024 1191 RxNorm Wanda ceja, ABNER PINEDA [facility] & [place] 13:14:26 Medications Name Sig Start Date Stop Date Status Note LastModified by Organization Details LastModified Time fluoxetine 40 mg capsule Take 1 capsule every day by oral route. active Not Available Not Available No t Available furosemide 40 mg tablet TAKE 1 TABLET BY MOUTH ONCE DAILY active Not Available Not Available No t Available prednisone 10 mg tablet TAKE 1 TABLET BY MOUTH TWICE DAILY FOR 7 DAYS 11/27 completed Not Available Not Available Not Available doxycycline hyclate 100 mg capsule TAKE 1 CAPSULE BY MOUTH TWICE DAILY FOR 10 DAYS 11/27 completed Not Available Not Available Not Available trazodone 50 mg tablet TAKE 1 TABLET BY MOUTH ONCE DAILY NEEDED active Not Available Not Available No t Available azithromyci n 250 mg tablet TAKE 2 TABLETS BY MOUTH ON DAY 1, AND THEN TAKE 1 TABLET BY MOUTH ONCE A DAY ON DAY 2 THROUGH DAY 5 11/27 completed Not Available Not Available Not Available prednisone 5 mg tablet TAKE 1 TABLET BY MOUTH ONCE DAILY FOR 5 DAYS 11/27 completed Not Available Not Available Not Available oxcarbazepi ne 300 mg tablet TAKE 1 TABLET BY MOUTH TWICE DAILY active Not Available Not Available No t Available phentermine 37.5 mg tablet TAKE 1 TABLET BY MOUTH ONCE DAILY FOR 30 DAYS 11/27 completed Not Available Not Available Not Available benzonatate 100 mg capsule TAKE 1 CAPSULE BY MOUTH THREE TIMES DAILY NEEDED FOR 10 DAYS 11/27 completed Not Available Not Available Not Available pantoprazol e 40 mg tablet,kathleen yed release TAKE 1 TABLET BY MOUTH ONCE DAILY active Not Available Not Available No t Available levothyroxi ne 200 mcg tablet TAKE 1 TABLET BY MOUTH ONCE DAILY active Not Available Not Available No t Available furosemide 20 mg tablet TAKE 1 TABLET BY MOUTH ONCE DAILY 11/27 completed Not Available Not Available Not Available albuterol sulfate HFA 90 mcg/actuati on aerosol inhaler INHALE 2 PUFFS BY MOUTH EVERY 4 HOURS NEEDED FOR WHEEZING active Not Available Not Available No t Available buspirone 15 mg tablet TAKE 1 TABLET BY MOUTH THREE TIMES DAILY NEEDED FOR ANXIETY 11/27 completed Not Available Not Available Not Available bupropion HCl XL 300 mg 24 hr tablet, extended release TAKE 1 TABLET BY MOUTH ONCE DAILY 11/27 completed Not Available Not Available Not Available topiramate 50 mg tablet TAKE 1 TABLET BY MOUTH ONCE DAILY FOR 30 DAYS 11/27 completed Not Available Not Available Not Available Vitals Date Recorded Body weight Body mass index (BMI) Body height Body temperature Oxygen saturation Oxygen saturation in Arterial blood by Pulse oximetry Heart rate Provider Name and Address Organization Details Last Updated DateTime 370899. 05 g 44.2 kg/m2 170.18 cm 97.3 [degF] 97 % 97 % 78 /min Wanda Weldon [facility] & [place] 13:12:58 Social History Question Answer Notes LastModified by [facility] [place] Details LastModified Time Tobacco Smoking Status Current Every Day Smoker Wanda Weldon [facility] & [place] 11/27/2024 13:16:59 How Much Tobacco Do You Smoke? 1 PPD Information not available 11/27/2024 Sex: Female Functional Status Question Answer Note LastModified by [employer] Details LastModified Time Do you use any illicit or recreational drugs? No Information not available 11/27/2024 What is your level of alcohol consumption? None Information not available 11/27/2024 Mental Status None recorded. Family History Relationship Description Onset Age of this Age Resolved Age Notes LastModified by Organization Details LastModified Time Mother Cerebrovascu lar accident Not available 10/2024 13:17:22 Mother Diabetes mellitus Not available 2024 13:17:34 Mother Essential hypertension Not available 10/2024 13:17:43 Medical History Condition Response Obesity Y Thyroid Problems Y Reflux/GERD Y Gynecological History Statement/Question Response Date of LMP 11/13/2024 Obstetrics History GPAL:G 0 P 0 0 0 0 Past Encounters Encounter ID Performer Location Encounter Start Date Encounter Closed Date Diagnosis/Indication Diagnosis SNOMED-CT Code Diagnosis ICD10 Code Diagnosis Note [id number] YASMINE GREENWOOD [facility] [address] [facility] [address] 11/27/2024 13:00:31 11/27/2024 13:58:55 Ingrowing nail 351258437 L60.0 I discussed treatment options with the patient. These have been chronic issues for her and she would like permanent nail avulsion of bilateral great toe medial nail borders. I anesthetiz ed each great toe with 5 cc of 1% lidocaine plain. I prepped the site with Hibiclens solution. Using an extreme nail spa remove the medial nail borders bilateral great toes and chemical matricecto my was performed with phenol and alcohol procedure. We applied antibiotic ointment dry dressing and Coban. Patient tried procedure well. Postproced ure instructio ns were dispensed to the patient. I will see her back in 2 weeks for re-evaluat ion. Pain in toe 753351643 M7 9.674 M79.675 G89.29 Health Concerns Section Related Observation LastModified by Organization Detai ls LastModified Time None Recorded Concern Status LastModified by Organization Details LastModified Time None Recorded Advance Directives Directive None Recorded Payers Insurance Date Sequence Insurance Name Policy Number Policy Astudillo Covered Member ID Astudillo Member ID Guarantor Name 11/27/2024 2 [facility] Juju Duvall [id number] Juju Duvall 12/09/2024 1 [facility] Juju Duvall [id number] Juju Duvall 12/09/2024 2 *SELF PAY* Br ike Duvall Notes Date Note Type Note Provider Name and Address Organization Details Recorded Time 11/27/2024 text/html Patient is a 39 year old female seen today at the office for chief complaint of painful ingrowing medial borders both great toes. They are chronic in nature. Usually when she has a pedicure they feel better for a period of time but not after her most recent visit. She would like to do something to resolve the condition. Pain increased when weight-bearing and wearing shoes. ANT HUITRON DPM [address] [facility],[address], [place], [address], [facility] [place] & [place] 11/27/2024 13:59:05 OBGyn Episode No OBEpisode recorded.
== END ==
PROVIDERS: PCP Nurse Practitioner; Visit Provider Nurse Practitioner
DX: R06.83 Snoring (principal); G47.36 Sleep related hypoventilation in conditions classified elsewhere; R40.0 Somnolence
CPT/HCPCS: G0399

== ENCOUNTER 2025-02-04 08:57 | Outpatient (CLI) | payer OTHER, SELFPAY ==
[2025-02-04 18:36] LABS: Basophils % 0.3 % (0.1-2.0); Eosinophils # 0.1 Kmm3 (0.0-0.4); Hematocrit 44.4 % (37.0-47.0); Hemoglobin 15.5 g/dL (12.2-16.2); Immature Granulocytes # 0.02 10^3uL; Immature Granulocytes % 0.2 %; Lymphocytes # 2.8 K/mm3 (0.7-4.5); Lymphocytes % 29.4 % (10-50); Mean Corpuscular HGB Conc 34.9 g/dL (31.8-35.4); Mean Corpuscular Hemoglobin 31.8 pg (27.0-31.2); Mean Corpuscular Volume 91.2 fl (81-99); Mean Platelet Volume 9.8 fl (7.4-10.4); Monocytes # 0.7 K/mm3 (0.1-1.0); Monocytes % 6.9 % (1.7-9.3); Neutrophils % 62.2 % (37.0-80.0); Nucleated Red Blood Cells # 0 10^3/uL; Nucleated Red Blood Cells % 0 %; Platelet Count 272 K/mm3 (142-424); Red Blood Count 4.87 M/mm3 (4.20-5.40); Red Cell Distribution Width 12.7 % (11.5-17.5); White Blood Count 9.6 K/mm3 (4.8-10.8)
[2025-02-04 18:43] LABS: Alanine Aminotransferase 22 U/L (12-78); Albumin Level 4.1 g/dl (3.5-5.0); Albumin/Globulin Ratio 1.6 (1.1-1.8); Alkaline Phosphatase 71 U/L (38-126); Aspartate Amino Transferase 25 U/L (14-36); Bilirubin,Total 0.6 mg/dl (0.2-1.3); Blood Urea Nitrogen 14 mg/dl (7-17); Calcium 10.1 mg/dl (8.4-10.2); Carbon Dioxide 24 mmol/L (22.0-30.0); Chloride 107 mmol/L (98-107); Chol/HDL Ratio 5.1 (1-3.5); Cholesterol 144 mg/dl (140-200); Estimated Glomerular Filt Rate 69 ml/min (>60); GFR (African American) 83 ML/MIN (>60); Globulin 2.6 g/dL (1.3-3.2); Glucose 124 mg/dl (74-100); HDL Cholesterol 28 mg/dl (40-60); Sodium 137 mmol/L (136-145); Total Protein,Serum 6.7 g/dl (6.3-8.2); Triglycerides 185 mg/dl (30-150); VLDL Cholesterol 37 mg/dL (0-40)
[2025-02-04 18:54] LABS: Direct LDL Cholesterol 70.88 mg/dL (100-129)
[2025-02-04 19:05] LABS: 25-OH Vitamin D, Total 35.7 ng/mL (30-100)
[2025-02-04 19:34] LABS: Vitamin B12 400 pg/mL (239-931)
[2025-02-04 20:04] LABS: Hemoglobin A1C 5.3 % (4.0-6.0)
--- OUTSIDE RECORDS SUMMARY | 2025-02-05 09:01 | XMS_ITS | Clinical Summary ---
Author Organization [facility] Address [address] [phone] Phone Care Team Providers Care Livestock Feeder Name Role Phone Aissatou Barajas TILE INSPECTOR Primary Care Provider Allergies Active Allergy Reactions Criticality Noted Date Comments Aspirin Itching,Other (See Comments) 015 Cariprazine Other (See Comments) 09/10/2024 Codeine Hives,Nausea Only,Rash Medium 02/09/2016 Loracarbef Hives,Itching,Nausea And Vomiting Medium 02/09/2016 Oxycodone-Acetaminophen Itching 04/04/2022 Medications FLUoxetine (PROZAC) 20 mg Oral Capsule Take 1 Capsule by mouth daily. 10/22/19 21 Active fUROsemide (LASIX) 20 mg Oral Tablet Take 20 mg by mouth daily. 11/24/19 23 Active fluticasone propionate (FLONASE) 50 mcg/actuation Nasl Waterman, Suspension 1 Waterman by Nasal route daily as needed. 08/21/20 23 Active busPIRone (BUSPAR) 10 mg Oral Tablet Take 1 Tablet by mouth 2 times daily. Active famotidine (PEPCID) 20 mg Oral TabletIndications: Gastroesophageal reflux disease with esophagitis without hemorrhage,Epigast lakisha abdominal pain Take 1 Tablet by mouth daily. 01/14/20 24 Active pantoprazole (PROTONIX) 40 mg Oral Tablet, Delayed Release (E.C.)Indications: Epigastric abdominal pain,Gastroesophag eal reflux disease with esophagitis without hemorrhage Take 1 tablet by mouth once daily 90 Tablet 08/26/20 24 Active LEVOthyroxine (SYNTHROID) 200 mcg Oral TabletIndications: Post-surgical hypothyroidism Take 1 Tablet by mouth daily. 90 Tablet 3 09/10/19 25 Active semaglutide, weight loss, (WEGOVY) 2.4 mg/0.75 mL SubQ Pen Injector Subcutaneous (Inject under the skin) 0.75 mL once a week. 3 mL 5 09/10/19 25 Active Active Problems Problem Noted Date Diagnosed Date Umbilical hernia without obstruction and without gangrene 08/10/2023 Gastroesophageal reflux dise ase with esophagitis without hemorrhage 01/24/2023 Overview (01/24/2023): EGD June 2021-reflux esophagitis with focal intestinal metaplasia consistent with reflux Previously took Protonix 40 mg twice daily but symptoms now well controlled with 40 mg once daily. Followed by Dr. Martinez Chronic RUQ pain 03/23/2022 Overview (03/23/2022): Added automatically from request for surgery [id number] Morbid obesity with BMI of 40.0-44.9, adult 02/24 Class 3 obesity 08/31/2021 Post-surgical hypothyroidism 11/09/2020 Abnormal thyroid blood test 11/09/2020 Immunizations Immunization Administration Dates Next Due Tdap 11/04/2015 Surgical History Surgery Date Site/Laterality Comments LEEP 2002 and then again in 2007 TONSILLECTOMY AND ADENOIDECTOMY age 10 TUBAL LIGATION 08/27/2011 - 08/26/2012 MOUTH SURGERY all teeth pulled now has dentures THYROID SURGERY CHOLECYSTECTOMY, LAPAROSCOPIC 04/27/2022 Abdomen/N/A Laparoscopic cholecystectomy ; Surgeon: Chago Deal MD; Location: [facility] MAIN OR; Service: General UPPER GASTROINTESTINAL ENDOSCOPY UMBILICAL HERNIA REPAIR 09/10/2023 N/A Robotic umbilical hernia repair without mesh; Surgeon: Ania Hyatt MD; Location: [facility] MAIN OR; Service: General Medical History Medical History Date Comments Thyroid disease Cancer (HCC) THYROID-REMOVED GERD (gastroesophageal reflux disease) Hyperparathyroidism Hyperthyroidism Thyroid cancer (HCC) Family History Medical History Relation Name Comments Obesity Brother Sid Bhatt No Known Problems Father Cancer Maternal Aunt Annalee bronson Cancer Maternal Grandfather Shmuel gomez Cancer Maternal Uncle Mehdi gomez Diabetes Mother Funmilayo ivan High Blood Pressure Mother Funmilayo ivan Obesity Mother Funmilayo ivan Stroke Mother Funmilayo ivan Diabetes Paternal Aunt Юлия Anesth Problems Neg Hx Relation Name Status Comments Brother Sid Bhatt Father Other Maternal Aunt Annalee bronson Maternal Grandfather Shmuel gomez Maternal Uncle Mehdi gomez Mother Funmilayo ivan Paternal Aunt Юлия Sister x1 Alive Social History Tobacco Use Types Packs/Day Years Used Date Smoking Tobacco: Every Day Cigarettes 1.3 37.8 Started: 02/08/1999 Smokeless Tobacco: Never Tobacco Cessation:Ready to Q uit: Yes; Counseling Given: Not Answered Alcohol Use Standard Drinks/Week Comments Not Currently 42 (1 standard drink = 0.6 oz pu re alcohol) occ wine Sexually Active Control Partners Comments Yes Surgical Male Comments No Sex and Gender Information Value Date Recorded Sex Assigned at Not on file Legal Sex Female 8:37 PM EDT Gender Identity Not on file Sexual Orientation Not on file Obstetrics History Last Filed Vital Signs Vital Sign Reading Time Taken Comments Blood Pressure 124/72 09/10/2024 9:53 AM EST Pulse 80 09/10/2024 9:53 AM EST Temperature 36.3 C (97.3 F) 04/01/2024 10:00 AM EDT Respiratory Rate 18 09/10/2024 9:53 AM EST Oxygen Saturation 98% 04/01/2024 10:20 AM EDT Inhaled Oxygen Concentration - - Weight 127.5 kg (281 lb) 09/10/2024 9:53 AM EST Height 170.2 cm (5' 7 ) 09/10/2024 9:53 AM EST Body Mass Index 44.01 09/10/2024 9:53 AM EST Plan of Treatment Upcoming Encounters Date Type Department Care Team (Late st Contact Info) Description 03/11/2025 9:30 AM EDT [facility] [place] [address] [place] [phone] Delonte Eden MD [address] [place] [id number] Health Maintenance Due Date Last Done Comments Annual Wellness Exam 1986 Hepatitis B Vaccine (2 of 3 - 3-dose series) 06/25/2000 05/28/2000 Pneumococcal Vaccine 0-49 (1 of 2 - PCV) 2002 Cervical Cancer Screening 2004 Pap Smear 2004 HPV/Pap Cotest 2013 Breast Cancer Screening 2023 COVID-19 Vaccine ( season) 2024 Influenza Vaccine (Season Ended) 2025 07/25/2023, 07/27/2020, 07/15/2015, Additional history exists DTaP/TDaP/Td (3 - Td or Tdap) 11/03/2025 11/04/2015, 06/30/2009 Meningococcal B Vaccine Aged Out No l onger eligible based on patient's age to complete this topic Insurance Care Teams Livestock Feeder Relationship Specialty Start Date End Date Aissatou Barajas FNP [address] [place] [phone] PCP - General Nurse Practitioner-Family 02/09/16
--- OUTSIDE RECORDS SUMMARY | 2025-02-05 09:01 | XMS_ITS | Encounter Summary ---
Author Organization [facility] [place] [address] [place] [address] Care Team Providers Care Experimental Mechanic Electrical Name Role Phone Aissatou Barajas LEVEE SUPERINTENDENT Primary Care Provider Encounter Details Date Type Department Care Team (Late st Contact Info) Description 11/16/2016 Orders Only SEP Gastro [facility] [address] [facility] Building [address] [place] [phone] [place] [address] [place] [address] Social History Tobacco Use Types Packs/Day Years Used Date Smoking Tobacco: Every Day Cigarettes 1 26 Started: 02/08/1999 Alcohol Use Standard Drinks/Week Comments Yes 0 (1 standard drink = 0.6 oz pur e alcohol) occ wine Comments No Sex and Gender Information Value Date Recorded Sex Assigned at Not on file Legal Sex Female 8:37 PM EDT Gender Identity Not on file Sexual Orientation Not on file documented as of this encounter Plan of Treatment Upcoming Encounters Date Type Department Care Team (Late st Contact Info) Description 03/11/2025 9:30 AM EDT [facility] [place] [address] [facility] [address] [place] [phone] Delonte Eden MD [address] [place] [address] documented as of this encounter Procedures Procedure Name Priority Date/Time Associated Diagnosis Comments GMED EGD Routine 11/16/2016 9:00 AM EDT documented in this encounter Results * GMED EGD (11/16/2016 9:00 AM EDT) 11/16/2016 9:00 AM EDT Impressions [facility] - 11/16/2016 9:15 AM EDT Normal stomach. Normal duodenum. Irregularity in the Z-line and gastroesophageal junction. (Biopsy, Dilation). Esophageal hiatal hernia. Plan: Await pathology results Acid Reflux diet and Education PPI Follow-up with heat and vent aircraft mechanic as needed or with continued symptoms. This section is an excerpt of the full report. us Ovi Posey MD GI PROCEDURE ORDERABLES Shauna leo Result Performing Organization Address City/State/[facility] Co de Phone Number [facility] [address] [place] [address] documented in this encounter Visit Diagnoses Not on filedocumented in this encounter Care Teams Experimental Mechanic Electrical Relationship Specialty Start Date End Date Aissatou Barajas FNP [address] [place] [phone] PCP - General Nurse Practitioner-Family 02/09/16 documented as of this encounter
--- OUTSIDE RECORDS SUMMARY | 2025-02-05 09:01 | XMS_ITS | Encounter Summary ---
Author Organization [place] [address] Care Team Providers Care Scrap Picker Name Role Phone Aissatou Barajas BODY SHOP ESTIMATOR Primary Care Provider Encounter Details Date Type Department Care Team (Late Contact Info) Description 06/30/2021 Lab Requisition [facility] [place] [address] Samia Martinez MD [address] [place] [address] Cross's esophagus without dysplasia; Unspecified abdominal pain; Heartburn; Other diseases of stomach and duodenum Social History Tobacco Use Types Packs/Day Years Used Date Smoking Tobacco: Every Day Cigarettes 1 26 Started: 02/08/1999 Smokeless Tobacco: Never Alcohol Use Standard Drinks/Week Comments Yes 0 [...] Encounters Date Type Department Care Team (Late Contact Info) Description 03/11/2025 9:30 AM EDT [facility] [address] [facility] [address] [place] [phone] Delonte Eden MD [address] [place] [address] documented as of this encounter Procedures Procedure Name Priority Date/Time Associated Diagnosis Comments PATHOLOGY TISSUE REQUEST Routine 06/30/2021 11:24 AM EDT Cross's esophagus without dysplasia Unspecified abdominal pain Heartburn Other diseases of stomach and duodenum documented in this encounter Results * PATHOLOGY TISSUE REQUEST (06/30/2021 11:24 AM EDT) CASE REPORT Surgical Pathology Case: [id number] Authorizing Provider: Samia Martinez MD Collected: 06/30/2021 1124 Ordering Location: [facility] Received: 06/30/2021 1424 Pathologist: Abby Romero MD Specimens: A) - Gastric B) - Gastroesophageal Junction 07/01/2021 2:46 PM EDT [facility] CLINICAL HISTORY Cross's esophagus without dysplasia; abdominal pain; heartburn 07/01/2021 2:46 PM EDT [facility] FINAL DIAGNOSIS A. Stomach, biopsy: - Mild chronic gastritis with focal intestinal metaplasia. - Immunostain for H. pylori is negative. - Negative for dysplasia. B. Gastroesophageal junction, biopsy: - Gastroesophageal mucosa with reflux esophagitis. - Negative for intestinal metaplasia or dysplasia. 07/01/2021 2:46 PM EDT [facility] at 1446 EDT GROSS DESCRIPTION A. Received in formalin and labeled with the patient's name, medical record number, and gastric biopsy are four fragments of chatman tissue ranging from 0.3 to 0.5 cm in greatest dimension. Entirely submitted in one cassette labeled A1. ZN 06/30/2021 2:41 PM B. Received in formalin and labeled with the patient's name, medical record number, and GE junction biopsy are three fragments of chatman tissue ranging from 0.3 to 0.4 cm in greatest dimension. Entirely submitted in one cassette labeled B1. ZN 06/30/2021 2:41 PM 07/01/2021 2:46 PM EDT [facility] MICROSCOPIC DESCRIPTION Microscopic examination is performed and the findings corroborate the diagnosis. 07/01/2021 2:46 PM EDT [facility] EMBEDDED IMAGES 07/01/2021 2:46 PM EDT [facility] Tissue CARDIOESOPHAGEAL JUNCTION STRUCTURE / Unknown 06/30/2021 11:24 AM EDT 06/30/2021 2:24 PM EDT Tissue specimen (specimen) CARDIOESOPHAGEAL JUNCTION STRUCTURE / Unknown 06/30/2021 11:24 AM EDT 06/30/2021 2:24 PM EDT us Samia Martinez MD PATHOLOGY ORDERABLES Final Result [facility] [address] [place] [address] documented in this encounter Visit Diagnoses Diagnosis Cross's esophagus without dysplasia Cross's esophagus Unspecified abdominal pain Heartburn Other diseases of stomach and duodenum documented in this encounter Care Teams Scrap Picker Relationship Specialty Start Date End Date Aissatou Barajas FNP [address] [place] [phone] PCP - General Nurse Practitioner-Family 02/09/16 documented as of this encounter
--- OUTSIDE RECORDS SUMMARY | 2025-02-05 09:01 | XMS_ITS | Encounter Summary ---
Author Organization [facility] [address] Care Team Providers Care Reactor Operator Name Role Phone Aissatou Barajas ELECTION ASSISTANT Primary Care Provider Encounter Details Date Type Department Care Team (Late st Contact Info) Description 06/30/2021 Orders Only SEP Gastro [facility] [address] [phone] Samia Martinez MD [address] [place], [place] [phone] Social History Tobacco Use Types Packs/Day Years [...] 9:30 AM EDT Office Visit [facility] [address] [facility] [address] [place] [phone] Delonte Eden MD [address] [place] [address] documented as of this encounter Procedures Procedure Name Priority Date/Time Associated Diagnosis Comments GMED EGD Routine 06/30/2021 10:00 AM EDT documented in this encounter Results * GMED EGD (06/30/2021 10:00 AM EDT) 06/30/2021 10:0 0 AM EDT Impressions [facility] - 06/30/2021 11:24 AM EDT Normal duodenum. Erosions (few) and erythema in the antrum, incisura of the stomach and stomach body. (Biopsy). Mucosa suggestive of Cross's esophagus (Biopsy). Plan: Follow up pathology results. This section is an excerpt of the full report. us Samia Martinez MD GI PROCEDURE ORDERABLES Fin al Result Performing Organization Address City/State/[facility] Co de Phone Number [facility] [address] [place] [address] documented in this encounter Visit Diagnoses Not on filedocumented in this encounter Care Teams Reactor Operator Relationship Specialty Start Date End Date Aissatou Barajas FNP [address] [place] [phone] PCP - General Nurse Practitioner-Family 02/09/16 documented as of this encounter
== END 2025-02-04 23:59 | disposition home or self-care (01) ==
LOC: LAB.DROPOF 02-05 08:58
PROVIDERS: PCP Nurse Practitioner; Visit Provider Nurse Practitioner
DX: Z13.220 Encounter for screening for lipoid disorders (principal); Z13.1 Encounter for screening for diabetes mellitus; E66.9 Obesity, unspecified; K21.9 Gastro-esophageal reflux disease without esophagitis
CPT/HCPCS: 80053; 80061; 82306; 82607; 83036; 85025

== ENCOUNTER 2025-03-09 13:12 | Outpatient (CLI) | payer OTHER, SELFPAY ==
--- OUTSIDE RECORDS SUMMARY | 2025-03-06 11:05 | XMS_ITS | Encounter Summary ---
Author Organization [place] [address] Care Team Providers Care Kiln Placer Name Role Phone Aissatou Barajas HORSERADISH GRINDER Primary Care Provider [phone] Encounter Details Date Type Department Care Team (Latest Contact Info) Description 03/06/2025 11:05 AM EDT - 03/06/2025 11:59 PM EDT Hospital Encounter [facility] [address] [place] [address] Post-surgical hypothyroidism; Elevated hemoglobin A1c; Class 3 obesity Discharge Disposition: Home or Self Care Social History Tobacco Use Types Packs/Day Years Used Date Smoking Tobacco: Every Day Cigarettes 1.3 37.9 Started: 02/08/1999 Smokeless Tobacco: Never Alcohol Use Standard Drinks/Week Comments Not Currently 42 (1 standard drink = 0.6 oz pu re alcohol) occ wine Sexually Active Control Partners Comments Yes Surgical Male Comments No Sex and Gender Information Value Date Recorded Sex Assigned at Not on file Legal Sex Female 8:37 PM EDT Gender Identity Not on file Sexual Orientation Not on file documented as of this encounter Medications at Time of Discharge busPIRone (BUSPAR) 10 mg Oral Tablet Take 1 Tablet by mouth 2 times daily. famotidine (PEPCID) 20 mg Oral TabletIndications:G astroesophageal reflux disease with esophagitis without hemorrhage,Epigastr ic abdominal pain Take 1 Tablet by mouth daily. FLUoxetine (PROZAC) 20 mg Oral Capsule Take 1 Capsule by mouth daily. 1 fluticasone propionate (FLONASE) 50 mcg/actuation Nasl [place], Suspension 1 [place] by Nasal route daily as needed. 3 fUROsemide (LASIX) 20 mg Oral Tablet Take 20 mg by mouth daily. 3 LEVOthyroxine (SYNTHROID) 200 mcg Oral TabletIndications:P ost-surgical hypothyroidism Take 1 Tablet by mouth daily. 90 Tablet 3 5 pantoprazole (PROTONIX) 40 mg Oral Tablet, Delayed Release (E.C.)Indications:E pigastric abdominal pain,Gastroesophage al reflux disease with esophagitis without hemorrhage Take 1 tablet by mouth once daily 90 Tablet 4 semaglutide, weight loss, (WEGOVY) 2.4 mg/0.75 mL SubQ Pen Injector Subcutaneous (Inject under the skin) 0.75 mL once a week. 3 mL 5 5 documented as of this encounter Discharge Disposition Disposition Code Departure Means Destination Home or Self Care documented in this encounter Plan of Treatment Upcoming Encounters Date Type Department Care Team (Late st Contact Info) Description 03/11/2025 9:30 AM EDT Office Visit [facility] [place] [address] [facility] [address] [place] [phone] Delonte Eden MD [address] [place] [address] documented as of this encounter Procedures Procedure Name Priority Date/Time Associated Diagnosis Comments LIPID PANEL REFLEX Routine 03/06/2025 11 :10 AM EDT Class 3 obesity T3 FREE Routine 03/06/2025 11:10 AM EDT Post-surgical hypothyroidism THYROID STIMULATING HORMONE Routine 03/06/2025 11:10 AM EDT Post-surgical hypothyroidism T4, FREE (THYROXINE) Routine 03/06/2025 11:10 AM EDT Post-surgical hypothyroidism HEMOGLOBIN A1C Routine 03/06/2025 11:10 AM EDT Elevated hemoglobin A1c COMPREHENSIVE METABOLIC PANEL Routine 03/06/2025 11:10 AM EDT Class 3 obesity documented in this encounter Results * (ABNORMAL) LIPID PANEL REFLEX (03/06/2025 11:10 AM EDT) [facility] Cholesterol 125 <200 mg/dL 03/06/2025 4:43 PM EDT [facility] [employer] Comment: < 200 Desirable 200 - 239 Borderline High >= 240 High Triglyceride 157(H) <150 mg/dL 03/06/2025 4:43 PM EDT [facility], Comment: < 150 Normal 150 - 199 Borderline High 200 - 499 High >= 500 Very High HDL 32(L) >=40 mg/dL 03/06/2025 4:43 PM EDT [facility], Comment: > 60 Optimal 40 - 60 Acceptable < 40 Low LDL Calculated 66 <100 mg/dL 03/06/2025 4:43 PM EDT [facility], Comment: < 100 Optimal 100 - 129 Near or above optimal 130 - 159 Borderline High 160 - 189 High >= 190 Very High The National Institutes of Health (NIH) equation is used for all lipid panels that report calculated LDL (LDL-C). Non-HDL-C Calculated 93 <=129 mg/dL 03/06/2025 4:43 PM EDT [facility], Comment: <130 Desirable 130-159 Above Desirable 160-189 Borderline High 190-219 High >= 220 Very High Fasting Specimen? No None 025 4:43 PM EDT [facility], Comment:pt had one pancake Blood VENOUS BLOOD / Unknown Venipuncture / Unknown 03/06/2025 11:10 AM EDT 03/06/2025 11:10 AM EDT us Delonte Eden MD CHEMISTRY ORDERABLES Final Re sult [facility] [employer] [address] [facility] , [place] [address] * COMPREHENSIVE METABOLIC PANEL (03/06/2025 11:10 AM EDT) Sodium 140 136 - 145 mmol/L 03/06/2025 4:43 PM EDT [facility] Potassium 3.9 3.5 - 5.0 mmol/L 03/06/2025 4:43 PM EDT [facility] Chloride 104 98 - 107 mmol/L 03/06/2025 4:43 PM EDT [facility] Total CO2 24 22 - 29 mmol/L 03/06/2025 4:43 PM EDT [facility] Anion Gap 12 7 - 16 mmol/L 03/06/2025 4:43 PM EDT [facility] Calcium 9.3 8.6 - 10.4 mg/dL 03/06/2025 4:43 PM EDT [facility] Glucose Lvl 93 70 - 99 mg/dL 03/06/2025 4:43 PM EDT [facility] BUN 12 6 - 20 mg/dL 03/06/2025 4:43 PM EDT [facility] Creatinine 0.85 0.51 - 1.30 mg/dL 03/06/2025 4:43 PM EDT [facility] Albumin 4.3 3.5 - 5.2 gm/dL 03/06/2025 4:43 PM EDT [facility] Total Protein 7.3 6.4 - 8.3 gm/dL 03/06/2025 4:43 PM EDT [facility] Bili Total 0.3 0.2 - 1.3 mg/dL 03/06/2025 4:43 PM EDT [facility] ALT 17 <=41 U/L 03/06/2025 4:43 PM EDT [facility] AST 18 <=40 U/L 03/06/2025 4:43 PM EDT [facility] Alk Phos 70 36 - 123 U/L 03/06/2025 4:43 PM EDT [facility] eGFR (CKD-EPIcr 2020) 88 >=60 mL/min/1.7 3 m2 03/06/2025 4:43 PM EDT [facility] Comment:Estimated GFR was ca lculated using the CKD-EPIcr (2020) equation refit without race. The equation is recommended by the National Kidney Foundation - [place] Society of Nephrology Task Force. Blood VENOUS BLOOD / Unknown Venipuncture / Unknown 03/06/2025 11:10 AM EDT 03/06/2025 11:10 AM EDT Delonte Eden MD CHEMISTRY ORDERABLES Final Re sult Performing Organization Address [facility] Co de Phone Number [facility] [employer] [address] , [place] [address] * HEMOGLOBIN A1C (03/06/2025 11:10 AM EDT) Hgb A1C 5.4 4.2 - 5.6 % 03/06/2025 4:17 PM EDT [facility] [employer] [facility] Est. Avg Glucose 108 mg/dL 03/06/2025 4:17 PM EDT [facility] [facility] Blood VENOUS BLOOD / Unknown Venipuncture / Unknown 03/06/2025 11:10 AM EDT 03/06/2025 11:10 AM EDT Narrative [facility] [facility] - 03/06/2025 4:17 PM EDT REFERENCE RANGE: Normal: 4.0-5.6% Pre-diabetes: 5.7-6.4% Provisional diagnosis of diabetes: >6.4% Hgb F>10% and anything which shortens red cell survival, such as hemolytic anemia, or unstable hemoglobin variants such as HbSS, HbSC, or HbCC, will lower the HbA1c value associated with a given level of glycemic control. Delonte Eden MD CHEMISTRY ORDERABLES Final Re sult Performing Organization Address [facility] Co de Phone Number [facility] [employer] , [place] [address] * (ABNORMAL) THYROID STIMULATING HORMONE (03/06/2025 11:10 AM EDT) TSH 0.097(L) 0.270 - 4.200 mcIU/mL 03/06/2025 4:49 PM EDT [facility] [employer] [facility] Blood VENOUS BLOOD / Unknown Venipuncture / Unknown 03/06/2025 11:10 AM EDT 03/06/2025 11:10 AM EDT Narrative [facility] [employer] [facility] - 03/06/2025 4:49 PM EDT Ingestion of sly doses of biotin (>5 mg/day) taken within 8 hours of drawing blood sample can interfere with this immunoassay test. Delonte Eden MD CHEMISTRY ORDERABLES Final Re sult Performing Organization Address [facility] Phone Number [facility] [employer] [address] , [place] [phone] * T4, FREE (THYROXINE) (03/06/2025 11:10 AM EDT) Free T4 1.61 0.80 - 1.80 ng/dL 03/06/2025 4:49 PM EDT [facility] [employer] Blood VENOUS BLOOD / Unknown Venipuncture / Unknown 03/06/2025 11:10 AM EDT 03/06/2025 11:10 AM EDT Narrative [facility], - 03/06/2025 4:49 PM EDT Ingestion of sly doses of biotin (>5 mg/day) taken within 8 hours of drawing blood sample can interfere with this immunoassay test. Delonte Eden MD CHEMISTRY ORDERABLES Final Re sult Performing Organization Address [facility] Phone Number [facility] [employer] [address] [place] [address] * T3 FREE (03/06/2025 11:10 AM EDT) T3 Free 2.76 2.00 - 4.40 pg/mL 03/06/2025 4:49 PM EDT [facility], Blood VENOUS BLOOD / Unknown Venipuncture / Unknown 03/06/2025 11:10 AM EDT 03/06/2025 11:10 AM EDT Narrative [employer] [facility] - 03/06/2025 4:49 PM EDT Ingestion of sly doses of biotin (>5 mg/day) taken within 8 hours of drawing blood sample can interfere with this immunoassay test. us Delonte Eden MD CHEMISTRY ORDERABLES Final Re sult [facility] [employer] [address] [facility] , [place] [address] documented in this encounter Visit Diagnoses Diagnosis Post-surgical hypothyroidism Postsurgical hypothyroidism Elevated hemoglobin A1c Other abnormal blood chemistry Class 3 obesity documented in this encounter Care Teams Kiln Placer Relationship Specialty Start Date End Date Aissatou Barajas FNP [address] [place] [phone] PCP - General Nurse Practitioner-Family 02/09/16 documented as of this encounter
--- NOTE | 2025-03-09 13:17 | XR_ITS ---
FINAL REPORT CLINICAL HISTORY: left ankle pain FINDINGS: LEFT ANKLE 4 views demonstrate no acute fracture or dislocation. The visualized joint spaces are normally aligned. The soft tissues are unremarkable. IMPRESSION: No acute bony abnormality. Reviewed, Interpreted and Dictated by Sarah Carson MD Transcribed by [employer] Authenticated and [facility]
--- OUTSIDE RECORDS SUMMARY | 2025-03-09 13:27 | XMS_ITS | Encounter Summary ---
Author Organization [place] [address] Care Team Providers Care Cleat Feeder Name Role Phone Aissatou Barajas [employer]. COMMISSIONER Primary Care Provider Encounter Details Date Type Department Care Team (Late st Contact Info) Description 06/30/2021 Orders Only SEP Gastro [facility] [address] [phone] Samia Martinez MD [address] [place], [place] [phone] Social History Tobacco Use Types Packs/Day Years Used Date Smoking Tobacco: Every Day Cigarettes 1 26.1 Started: 02/08/1999 Smokeless Tobacco: Never Alcohol Use [...] 9:30 AM EDT Office [facility] [address] [facility] [address] [place] [phone] Delonte Eden MD [address] [place], [place] [phone] documented as of this encounter Procedures Procedure Name Priority Date/Time Associated Diagnosis Comments GMED EGD Routine 06/30/2021 10:00 AM EDT documented in this encounter Results * GMED EGD (06/30/2021 10:00 AM EDT) 06/30/2021 10:0 0 AM EDT Impressions [facility] - 06/30/2021 11:24 AM EDT Normal duodenum. Erosions (few) and erythema in the antrum, incisura of the stomach and stomach body. (Biopsy). Mucosa suggestive of Cross's esophagus (Biopsy). Plan: Follow up pathology results. This section is an excerpt of the full report. us Samia Martinez MD GI PROCEDURE ORDERABLES Fin al Result Performing Organization Address City/State/[facility] Co de Phone Number [facility] [address] [place] [phone] documented in this encounter Visit Diagnoses Not on filedocumented in this encounter Care Teams Cleat Feeder Relationship Specialty Start Date End Date Aissatou Barajas FNP [address] [place] [phone] PCP - General Nurse Practitioner-Family 02/09/16 documented as of this encounter
--- OUTSIDE RECORDS SUMMARY | 2025-03-09 13:27 | XMS_ITS | Encounter Summary ---
Author Organization [place] [address] Care Team Providers Care Fisher Pot Name Role Phone Aissatou Barajas RADIO PRESENTER Primary Care Provider Encounter Details Date Type Department Care Team (Late Contact Info) Description 06/30/2021 Lab Requisition [facility] [place] [address] Samia Martinez MD [address] [place] [address] Cross's esophagus without dysplasia; Unspecified abdominal pain; [...] Description 03/11/2025 9:30 AM EDT Office Visit [facility] [address] [facility] [address] [place] [phone] Delonte Eden MD [address] [place] [address] documented as of this encounter Procedures Procedure Name Priority Date/Time Associated Diagnosis Comments PATHOLOGY TISSUE REQUEST Routine 06/30/2021 11:24 AM EDT Cross's esophagus without dysplasia Unspecified abdominal pain Heartburn Other diseases of stomach and duodenum documented in this encounter Results * PATHOLOGY TISSUE REQUEST (06/30/2021 11:24 AM EDT) CASE REPORT Surgical Pathology Case: [id number] Authorizing Provider: Samia Martinez MD Collected: 06/30/2021 1124 Ordering Location: [facility] Received: 06/30/2021 1424 Pathologist: Abby Romero MD Specimens: A) - Gastric B) - Gastroesophageal Junction 07/01/2021 2:46 PM EDT [facility] CLINICAL H[facility] Cross's esophagus without dysplasia; abdominal pain; heartburn 07/01/2021 2:46 PM EDT [facility] FINAL DIAGNOSIS A. Stomach, biopsy: - Mild chronic gastritis with focal intestinal metaplasia. - Immunostain for H. pylori is negative. - Negative for dysplasia. B. Gastroesophageal junction, biopsy: - Gastroesophageal mucosa with reflux esophagitis. - Negative for intestinal metaplasia or dysplasia. 07/01/2021 2:46 PM EDT [facility] at 1446 EDT GROSS DESCRIPTION A. [...] 06/30/2021 2:41 PM 07/01/2021 2:46 PM EDT [facility] MICROSCOPIC DESCRIPTION Microscopic examination is performed and the findings corroborate the diagnosis. 07/01/2021 2:46 PM EDT [facility] EMBEDDED IMAGES 07/01/2021 2:46 PM EDT [facility] Tissue CARDIOESOPHAGEAL JUNCTION STRUCTURE / Unknown 06/30/2021 11:24 AM EDT 06/30/2021 2:24 PM EDT Tissue specimen (specimen) CARDIOESOPHAGEAL JUNCTION STRUCTURE / Unknown 06/30/2021 11:24 AM EDT 06/30/2021 2:24 PM EDT us Samia Martinez MD PATHOLOGY ORDERABLES Final Result [facility] [address] [place] [address] documented in this encounter Visit Diagnoses Diagnosis Cross's esophagus without dysplasia Cross's esophagus Unspecified abdominal pain Heartburn Other diseases of stomach and duodenum documented in this encounter Care Teams Fisher Pot Relationship Specialty Start Date End Date Aissatou Barajas FNP [address] [place] [phone] PCP - General Nurse Practitioner-Family 02/09/16 documented as of this encounter
--- OUTSIDE RECORDS SUMMARY | 2025-03-09 13:27 | XMS_ITS | Encounter Summary ---
Author Organization [place] [address] Care Team Providers Care Certified Addiction Counselor Name Role Phone Aissatou Barajas MAGNETIC RESONANCE TECHNOLOGIST Primary Care Provider Encounter Details Date Type Department Care Team (Late st Contact Info) Description 11/16/2016 Orders Only SEP Gastro [facility] [address] [facility] [address] [place] [phone] [place] [address] [place] [address] Social History Tobacco Use Types Packs/Day Years Used Date Smoking Tobacco: Every Day Cigarettes 1 26.1 Started: 02/08/1999 Alcohol Use Standard Drinks/Week Comments [...] 9:30 AM EDT [facility] [address] [facility] [address] [place] [phone] Delonte Eden MD [address] [place] [phone] documented as of this encounter Procedures Procedure Name Priority Date/Time Associated Diagnosis Comments GMED EGD Routine 11/16/2016 9:00 AM EDT documented in this encounter Results * ED EGD (11/16/2016 9:00 AM EDT) 11/16/2016 9:00 AM EDT Impressions [facility] - 11/16/2016 9:15 AM EDT Normal stomach. Normal duodenum. Irregularity in the Z-line and gastroesophageal junction. (Biopsy, Dilation). Esophageal hiatal hernia. Plan: Await pathology results Acid Reflux diet and Education PPI Follow-up with handicrafts teacher as needed or with continued symptoms. This section is an excerpt of the full report. us Ovi Posey MD GI PROCEDURE ORDERABLES Shauna leo Result Performing Organization Address City/State/[facility] Co de Phone Number [facility] [address] [place] [address] documented in this encounter Visit Diagnoses Not on filedocumented in this encounter Care Teams Certified Addiction Counselor Relationship Specialty Start Date End Date Aissatou Barajas FNP [address] [place] [phone] PCP - General Nurse Practitioner-Family 02/09/16 documented as of this encounter
--- OUTSIDE RECORDS SUMMARY | 2025-03-09 13:27 | XMS_ITS | Clinical Summary ---
Author Organization [facility] Address [address] [address] Phone Care Team Providers Care Assembly Adjuster Name Role Phone Aissatou Barajas MULTIPLE SLIDE OPERATOR Primary Care Provider [phone] Allergies Active Allergy Reactions Criticality Noted Date [...] Active fluticasone propionate (FLONASE) 50 mcg/actuation Nasl [place], Suspension 1 [place] by Nasal route daily as needed. 08/21/20 [...] (03/23/2022): Added automatically from request for surgery [id number] Morbid obesity with BMI of 40.0-44.9, adult 02/24 Class 3 obesity 08/31/2021 Post-surgical hypothyroidism 11/09/2020 Abnormal thyroid blood test 11/09/2020 Encounters Date Type Department Care Team Description 03/09/2025 Results Follow-Up [facility] [address] [facility] [address] [place] [address] Delonte Eden MD T3 FREE, T4, FREE (THYROXINE), THYROID STIMULATING HORMONE, Additional followed-up results: 3 03/06/2025 11:05 AM EDT - 03/06/2025 11:59 PM EDT Hospital Encounter [facility] [address] [address] Post-surgical hypothyroidism; Elevated hemoglobin A1c; Class 3 obesity Discharge Disposition: Home or Self Care 03/06/2025 Travel from Last 3 Months Immunizations Immunization Administration Dates Next Due Tdap 11/04/2015 Surgical History Surgery Date Site/Laterality Comments LEEP 2002 and then again in 2007 TONSILLECTOMY AND ADENOIDECTOMY age 10 TUBAL LIGATION 08/27/2011 - 08/26/2012 MOUTH SURGERY all teeth pulled now has dentures THYROID SURGERY CHOLECYSTECTOMY, LAPAROSCOPIC 04/27/2022 Abdomen/N/A Laparoscopic cholecystectomy ; Surgeon: Chago Deal MD; Location: [facility] MAIN OR; Service: General UPPER GASTROINTESTINAL ENDOSCOPY UMBILICAL HERNIA REPAIR 09/10/2023 N/A Robotic umbilical hernia repair without mesh; Surgeon: Ania Hyatt MD; Location: [facility] MAIN OR; Service: General Medical History Medical [...] 1.3 37.9 Started: 02/08/1999 Smokeless Tobacco: Never Tobacco Cessation:Ready [...] Description 03/11/2025 9:30 AM EDT [facility] [address] [facility] [address] [place] [address] Delonte Eden MD [address] [place] [address] Health Maintenance Due Date Last Done Comments Annual Wellness Exam 1986 Hepatitis B Vaccine (2 of 3 - 3-dose series) 06/25/2000 05/28/2000 Pneumococcal Vaccine 0-49 (1 of 2 - PCV) 2002 Cervical Cancer Screening 2004 Pap Smear 2004 HPV/Pap Cotest 2013 Breast Cancer Screening 2023 COVID-19 Vaccine ( season) 2024 Influenza Vaccine (#1) 2025 , 07/15/2015, 05/22/2011, Additional history exists DTaP/TDaP/Td (3 - Td or Tdap) 11/03/2025 11/04/2015, 06/30/2009 Meningococcal B Vaccine Aged Out No l onger eligible based on patient's age to complete this topic Procedures Procedure Name Priority Date/Time Associated Diagnosis Comments LIPID PANEL REFLEX Routine 03/06/2025 11 :10 AM EDT Class 3 obesity COMPREHENSIVE METABOLIC PANEL Routine 03/06/2025 11:10 AM EDT Class 3 obesity HEMOGLOBIN A1C Routine 03/06/2025 11:10 AM EDT Elevated hemoglobin A1c THYROID STIMULATING HORMONE Routine 03/06/2025 11:10 AM EDT Post-surgical hypothyroidism T4, FREE (THYROXINE) Routine 03/06/2025 11:10 AM EDT Post-surgical hypothyroidism T3 FREE Routine 03/06/2025 11:10 AM EDT Post-surgical hypothyroidism from Last 3 Months Results * (ABNORMAL) LIPID PANEL REFLEX (03/06/2025 11:10 AM EDT) Cholesterol 125 <200 mg/dL 03/06/2025 4:43 PM EDT PREFERRED [facility] Comment: < 200 Desirable 200 - 239 Borderline High >= 240 High Triglyceride 157(H) <150 mg/dL 03/06/2025 4:43 PM EDT [facility] Comment: < 150 Normal 150 - 199 Borderline High 200 - 499 High >= 500 Very High HDL 32(L) >=40 mg/dL 03/06/2025 4:43 PM EDT [facility] Comment: > 60 Optimal 40 - 60 Acceptable < 40 Low LDL Calculated 66 <100 mg/dL 03/06/2025 4:43 PM EDT [facility] Comment: < 100 Optimal 100 - 129 Near or above optimal 130 - 159 Borderline High 160 - 189 High >= 190 Very High The National Institutes of Health (NIH) equation is used for all lipid panels that report calculated LDL (LDL-C). Non-HDL-C Calculated 93 <=129 mg/dL 03/06/2025 4:43 PM EDT [facility] Comment: <130 Desirable 130-159 Above Desirable 160-189 Borderline High 190-219 High >= 220 Very High Fasting Specimen? No None 025 4:43 PM EDT [facility] Comment:pt had one pancake Blood VENOUS BLOOD / Unknown Venipuncture / Unknown 03/06/2025 11:10 AM EDT 03/06/2025 11:10 AM EDT us Delonte Eden MD CHEMISTRY ORDERABLES Final Re sult [facility]ED [facility] [address] [facility] , [address] [place] [id number] * T3 FREE (03/06/2025 11:10 AM EDT) T3 Free 2.76 2.00 - 4.40 pg/mL 03/06/2025 4:49 PM EDT [facility] [employer] [facility] Blood VENOUS BLOOD / Unknown Venipuncture / Unknown 03/06/2025 11:10 AM EDT 03/06/2025 11:10 AM EDT Narrative [facility] - 03/06/2025 4:49 PM EDT Ingestion of sly doses of biotin (>5 mg/day) taken within 8 hours of drawing blood sample can interfere with this immunoassay test. Delonte Eden MD CHEMISTRY ORDERABLES Final Re sult Performing Organization Address [facility] Co de Phone Number [facility] [employer] , [place] [address] * (ABNORMAL) THYROID STIMULATING HORMONE (03/06/2025 11:10 AM EDT) TSH 0.097(L) 0.270 - 4.200 mcIU/mL 03/06/2025 4:49 PM EDT [facility] Blood VENOUS BLOOD / Unknown Venipuncture / Unknown 03/06/2025 11:10 AM EDT 03/06/2025 11:10 AM EDT Narrative [facility] - 03/06/2025 4:49 PM EDT Ingestion of sly doses of biotin (>5 mg/day) taken within 8 hours of drawing blood sample can interfere with this immunoassay test. Delonte Eden MD CHEMISTRY ORDERABLES Final Re sult Performing Organization Address City/[facility]/ZIP Co de Phone Number [facility] [employer] , [address] [place], [place] [id number] * T4, FREE (THYROXINE) (03/06/2025 11:10 AM EDT) Free T4 1.61 0.80 - 1.80 ng/dL 03/06/2025 4:49 PM EDT [facility] [employer] [facility] Blood VENOUS BLOOD / Unknown Venipuncture / Unknown 03/06/2025 11:10 AM EDT 03/06/2025 11:10 AM EDT Narrative [facility] - 03/06/2025 4:49 PM EDT Ingestion of sly doses of biotin (>5 mg/day) taken within 8 hours of drawing blood sample can interfere with this immunoassay test. Delonte Eden MD CHEMISTRY ORDERABLES Final Re sult Performing Organization Address [facility] de Phone Number [facility] [employer] [address] , [place] [address] * HEMOGLOBIN A1C (03/06/2025 11:10 AM EDT) Hgb A1C 5.4 4.2 - 5.6 % 03/06/2025 4:17 PM EDT [facility] [employer] [facility] Est. Avg Glucose 108 mg/dL 03/06/2025 4:17 PM EDT [facility] [employer] [facility] Blood VENOUS BLOOD / Unknown Venipuncture / Unknown 03/06/2025 11:10 AM EDT 03/06/2025 11:10 AM EDT Narrative [facility] - 03/06/2025 4:17 PM EDT REFERENCE RANGE: Normal: 4.0-5.6% Pre-diabetes: 5.7-6.4% Provisional diagnosis of diabetes: >6.4% Hgb F>10% and anything which shortens red cell survival, such as hemolytic anemia, or unstable hemoglobin variants such as HbSS, HbSC, or HbCC, will lower the HbA1c value associated with a given level of glycemic control. Delonte Eden MD CHEMISTRY ORDERABLES Final Re sult Performing Organization Address [facility] Co de Phone Number [facility] [employer] [place] [address] * COMPREHENSIVE METABOLIC PANEL (03/06/2025 11:10 AM EDT) Pathologist [facility] Sodium 140 136 - 145 mmol/L 03/06/2025 [...] recommended by the National Kidney Foundation - [place] [employer] of Nephrology Task Force. Blood VENOUS BLOOD / Unknown Venipuncture / Unknown 03/06/2025 11:10 AM EDT 03/06/2025 11:10 AM EDT us Delonte Eden MD CHEMISTRY ORDERABLES Final Re sult [facility] [employer], [employer] [address] [facility] , [place] [address] from Last 3 Months Insurance Care Teams Assembly Adjuster Relationship Specialty Start Date End Date Aissatou Barajas FNP [address] [place] [phone] PCP - General Nurse Practitioner-Family 02/09/16
--- OUTSIDE RECORDS SUMMARY | 2025-03-09 13:27 | XMS_ITS | Encounter Summary ---
Author Organization [place] [address] Care Team Providers Care Meter/Relay Craftsman Name Role Phone Aissatou Barajas SURVEY RESEARCH MANAGER Primary Care Provider [phone] Encounter Details Date Type Department Care Team (Late Contact Info) Description 03/09/2025 Results Follow-Up [facility] [address] [employer] [address] [address] Delonte Eden MD [address] [place] [address] T3 FREE, T4, FREE (THYROXINE), THYROID STIMULATING HORMONE, Additional followed-up results: 3 Social History Tobacco Use Types Packs/Day Years [...] Description 03/11/2025 9:30 AM EDT Office Visit [facility] [address] [employer] [address] [address] Delonte Eden MD [address] [place] [address] documented as of this encounter Visit Diagnoses Not on filedocumented in this encounter Care Teams Meter/Relay Craftsman Relationship Specialty Start Date End Date Aissatou Barajas FNP [address] [place] [phone] PCP - General Nurse Practitioner-Family 02/09/16 documented as of this encounter
--- OUTSIDE RECORDS SUMMARY | 2025-03-09 13:27 | XMS_ITS | Encounter Summary ---
Author Organization [facility] [place] [address] Care Team Providers Care Classifier Operator Name Role Phone Aissatou Barajas Primary Care Provider [phone] Encounter Details Date Type Department Care Team (Latest Contact Info) Description 03/06/2025 Travel Social History Tobacco Use Types Packs/Day Years [...] Description 03/11/2025 9:30 AM EDT Office Visit [facility] [address] [facility] [address] [place] [phone] Delonte Eden MD [address] [place] [address] documented as of this encounter Visit Diagnoses Not on filedocumented in this encounter Care Teams Classifier Operator Relationship Specialty Start Date End Date Aissatou Barajas FNP [address] [place] [phone] PCP - General Nurse Practitioner-Family 02/09/16 documented as of this encounter
--- OUTSIDE RECORDS SUMMARY | 2025-03-09 13:27 | XMS_ITS | Data Portability ---
Author Organization [facility] [place] Address [address] [place] [address] Care Team Providers Care President And Chief Commercial Officer Name Role Phone PRIMARY PLUS - BROOK [...] and Address Organization Details Recorded Time 08/27/19 19 Thyroid Surgery completed Wanda LEVINE [facility] [place] 11/27/2024 13:13:33 08/27/18 94 ENT Surgery completed Wanda LEVINE [facility] [place] 11/27/2024 13:13:33 08/27/18 94 Tonsillectomy/Adeno idectomy completed Wanda LEVINE [facility] [place] 11/27/2024 13:13:33 hernia repair completed Wanda LEVINE [facility] & [place] 11/27/2024 13:16:13 ligation of fallopian tube completed Wanda Shiraz [facility] [place] 11/27/2024 13:16:23 cholecystectomy completed Wanda LEVINE [facility] [place] 11/27/2024 13:16:30 loop electrosurgical excision procedure completed Wanda LEVINE [facility] [place] 11/27/2024 13:18:08 Imaging Results None recorded. Procedure Notes None recorded. Medical Equipment None Reported. Allergies Allergen ID Allergen Name Allergen Category Reaction Reaction Severity Criticality Documentation Date Start Date Code Code System Note Provider Name and Address Organization Details Recorded Time 208250 codeine medicatio n Not available Not available Not available 11/27/2024 2670 RxNorm [facility] - [facility] - [place] & [place] 13:14:15 [id number] aspirin medicatio n Not available Not available Not available 11/27/2024 1191 RxNorm Wanda ceja, [facility] - JULIANNENT - [place] & [place] 13:14:26 Medications Name Sig Start Date Stop [...] and Address Organization Details Last Updated DateTime 908418. 05 g 44.2 kg/m2 170.18 cm 97.3 [degF] 97 % 97 % 78 /min Wanda Weldon [facility] & [place] 13:12:58 Social History Question Answer Notes LastModified by Organizat [employer] Details LastModified Time Tobacco Smoking Status Current Every Day Smoker Wanda Weldon [facility] & [place] 11/27/2024 13:16:59 How Much Tobacco Do You Smoke? 1 PPD Information not available 11/27/2024 Sex: Female Functional Status Question Answer Note LastModified by Organizat ion Details LastModified Time Do you use any [...] SNOMED-CT Code Diagnosis ICD10 Code Diagnosis Note [id number] YASMINE GREENWOOD [facility] [address] [place] [place] [address] 11/27/2024 13:00:31 11/27/2024 13:58:55 Ingrowing nail 509147933 L60.0 I discussed treatment options with the [...] weeks for re-evaluat ion. Pain in toe 385328032 M7 9.674 M79.675 G89.29 Health Concerns Section Related Observation LastModified by Organization Detai ls LastModified Time None Recorded Concern Status LastModified by Organization Details LastModified Time None Recorded Advance Directives Directive None Recorded Payers Insurance Date Sequence Insurance Name Policy Number Policy Astudillo Covered Member ID Astudillo Member ID Guarantor Name 11/27/2024 2 [facility] Juju Duvall [id number] Juju Duvall 12/09/2024 1 [facility] Juju Duvall [id number] Juju Duvall 12/09/2024 2 *SELF PAY* Anitra Duvall Notes Date Note Type Note Provider [...] and wearing shoes. ANT HUITRON DPM [address] [facility],[address], [place], [address], [facility] - [facility] - [place] & [place] 11/27/2024 13:59:05 OBGyn Episode No OBEpisode recorded.
== END 2025-03-09 23:59 | disposition home or self-care (01) ==
LOC: RAD 13:13
PROVIDERS: PCP Nurse Practitioner; Visit Provider Physician Assistant
DX: M25.572 Pain in left ankle and joints of left foot (principal)
CPT/HCPCS: 73610

== ENCOUNTER 2025-03-09 15:55 | Outpatient (RCR) | payer OTHER, SELFPAY | END 2025-03-09 23:59 | disposition home or self-care (01) | LOC: PT 15:55 | PROVIDERS: Visit Provider Physician Assistant | DX: M25.572 Pain in left ankle and joints of left foot (principal) | CPT/HCPCS: 97760 ==

== ENCOUNTER 2025-05-28 09:24 | Outpatient (CLI) | payer OTHER, SELFPAY ==
--- OUTSIDE RECORDS SUMMARY | 2025-05-29 11:59 | XMS_ITS | Encounter Summary ---
Author Organization [facility] [place] [address] Care Team Providers Care General Store Manager Name Role Phone Aissatou Barajas ELASTIC YARN TWISTER Primary Care Provider [phone] Encounter Details Date Type Department Care Team (Late st Contact Info) Description 11/16/2016 Orders Only SEP Gastro [facility] [address] [place] [id number] [place] [address] [place] [address] Social History Tobacco Use Types Packs/Day Years Used Date Smoking Tobacco: Every Day Cigarettes 1 26.3 Started: 02/08/1999 Alcohol Use Standard Drinks/Week Comments [...] Care Team (Late st Contact Info) Description 09/14/2025 9:30 AM EST Office Visit [facility] [address] [facility] [address] [place] [phone] Delonte Eden MD [address] [place] [address] documented as of this encounter Procedures Procedure Name Priority Date/Time Associated Diagnosis Comments GMED EGD Routine 11/16/2016 9:00 AM EDT documented in this encounter Results * ED EGD (11/16/2016 9:00 AM EDT) 11/16/2016 9:00 AM EDT Impressions [facility] - 11/16/2016 9:15 AM EDT Normal stomach. Normal duodenum. Irregularity in the Z-line and gastroesophageal junction. (Biopsy, Dilation). Esophageal hiatal hernia. Plan: Await pathology results Acid Reflux diet and Education PPI Follow-up with voucher clerk as needed or with continued symptoms. This section is an excerpt of the full report. us Ovi Posey MD GI PROCEDURE ORDERABLES Shauna leo Result Performing Organization Address City/State/[facility] Co de Phone Number [facility] [address] [place] [address] documented in this encounter Visit Diagnoses Not on filedocumented in this encounter Care Teams General Store Manager Relationship Specialty Start Date End Date Aissatou Barajas FNP [address] [place] [phone] PCP - General Nurse Practitioner-Family 02/09/16 documented as of this encounter
--- OUTSIDE RECORDS SUMMARY | 2025-05-29 11:59 | XMS_ITS | Encounter Summary ---
Author Organization [place] [address] Care Team Providers Care Pv Installer Tech Name Role Phone Aissatou Barajas PATTERNMAKER HAND Primary Care Provider Encounter Details Date Type Department Care Team (Late Contact Info) Description 06/30/2021 Lab Requisition [facility] [place] [address] Samia Martinez MD [address] [place] [address] Cross's esophagus without dysplasia; Unspecified abdominal pain; Heartburn; Other diseases of stomach and duodenum Social History Tobacco Use Types Packs/Day Years Used Date Smoking Tobacco: Every Day Cigarettes 1 26.3 Started: 02/08/1999 Smokeless Tobacco: Never Alcohol Use [...] Department Care Team (Late Contact Info) Description 09/14/2025 9:30 AM EST Office Visit [facility] [address] [facility] [address] [place] [phone] Delonte Eden MD [address] [place] [address] documented as of this encounter Procedures Procedure Name Priority Date/Time Associated Diagnosis Comments PATHOLOGY TISSUE REQUEST Routine 06/30/2021 11:24 AM EDT Cross's esophagus without dysplasia Unspecified abdominal pain Heartburn Other diseases of stomach and duodenum documented in this encounter Results * PATHOLOGY TISSUE REQUEST (06/30/2021 11:24 AM EDT) CASE REPORT Surgical Pathology Case: [id number] Authorizing Provider: Samia Martinez MD Collected: 06/30/2021 1124 Ordering Location: [facility] Received: 06/30/2021 1424 Pathologist: Abby Romero MD Specimens: A) - Gastric B) - Gastroesophageal Junction 07/01/2021 2:46 PM EDT [facility] Cross's esophagus without dysplasia; abdominal pain; heartburn 07/01/2021 2:46 PM EDT [facility] FINAL DIAGNOSIS A. Stomach, biopsy: - Mild chronic gastritis with focal intestinal metaplasia. - Immunostain for H. pylori is negative. - Negative for dysplasia. B. Gastroesophageal junction, biopsy: - Gastroesophageal mucosa with reflux esophagitis. - Negative for intestinal metaplasia or dysplasia. 07/01/2021 2:46 PM EDT [facility] at 1446 EDT GROSS DESCRIPTION A. [...] 06/30/2021 2:41 PM 07/01/2021 2:46 PM EDT [facility] MICROSCOPIC DESCRIPTION Microscopic examination is performed and the findings corroborate the diagnosis. 07/01/2021 2:46 PM EDT [facility] EMBEDDED IMAGES 07/01/2021 2:46 PM EDT [facility] Tissue CARDIOESOPHAGEAL JUNCTION STRUCTURE / Unknown 06/30/2021 11:24 AM EDT 06/30/2021 2:24 PM EDT Tissue specimen (specimen) CARDIOESOPHAGEAL JUNCTION STRUCTURE / Unknown 06/30/2021 11:24 AM EDT 06/30/2021 2:24 PM EDT us Samia Martinez MD PATHOLOGY ORDERABLES Final Result [facility] [address] [place] [address] documented in this encounter Visit Diagnoses Diagnosis Cross's esophagus without dysplasia Cross's esophagus Unspecified abdominal pain Heartburn Other diseases of stomach and duodenum documented in this encounter Care Teams Pv Installer Tech Relationship Specialty Start Date End Date Aissatou Barajas FNP [address] [place] [phone] PCP - General Nurse Practitioner-Family 02/09/16 documented as of this encounter
--- OUTSIDE RECORDS SUMMARY | 2025-05-29 11:59 | XMS_ITS | Encounter Summary ---
Author Organization [place] [address] Care Team Providers Care Assistant Production Manager Name Role Phone Aissatou Barajas MANAGER PORT Primary Care Provider Encounter Details Date Type Department Care Team (Late Contact Info) Description 03/09/2025 Results Follow-Up [facility] [address] [employer] [address] [phone] Delonte Eden MD [address] [place] [address] T3 FREE, T4, FREE (THYROXINE), THYROID STIMULATING HORMONE, Additional followed-up results: 3 Social History Tobacco Use Types Packs/Day Years Used Date Smoking Tobacco: Every Day Cigarettes 1.3 38.1 Started: 02/08/1999 Smokeless Tobacco: Never Alcohol Use [...] Description 09/14/2025 9:30 AM EST Office Visit [facility] [address] [employer] [address] [phone] Delonte Eden MD [address] [place] [address] documented as of this encounter Visit Diagnoses Not on filedocumented in this encounter Care Teams Assistant Production Manager Relationship Specialty Start Date End Date Aissatou Barajas FNP [address] [place] [phone] PCP - General Nurse Practitioner-Family 02/09/16 documented as of this encounter
--- OUTSIDE RECORDS SUMMARY | 2025-05-29 11:59 | XMS_ITS | Encounter Summary ---
Author Organization [place] [address] Care Team Providers Care Mat Machine Tender Name Role Phone Aissatou Barjaas DIETARY AIDE Primary Care Provider Encounter Details Date Type Department Care Team (Late Contact Info) Description 06/30/2021 Orders Only SEP Gastro [facility] [address] [facility] [address] [place] [address] Samia Martinez MD [address] [place] [address] Social History Tobacco Use Types Packs/Day Years [...] 9:30 AM EST Office [facility] [address] [facility] [address] [place] [phone] Delonte Eden MD [address] [place] [address] documented as of this encounter Procedures Procedure Name Priority Date/Time Associated Diagnosis Comments GMED EGD Routine 06/30/2021 10:00 AM EDT documented in this encounter Results * GMED EGD (06/30/2021 10:00 AM EDT) 06/30/2021 10:0 0 AM EDT Impressions [facility] - 06/30/2021 11:24 AM EDT Normal duodenum. Erosions (few) and erythema in the antrum, incisura of the stomach and stomach body. (Biopsy). Mucosa suggestive of Cross's esophagus (Biopsy). Plan: Follow up pathology results. This section is an excerpt of the full report. us Samia Martinez MD GI PROCEDURE ORDERABLES Fin al Result Performing Organization Address City/State/[facility] Co de Phone Number [facility] [address] [place] [phone] documented in this encounter Visit Diagnoses Not on filedocumented in this encounter Care Teams Mat Machine Tender Relationship Specialty Start Date End Date Aissatou Barajas FNP [address] [place] [phone] PCP - General Nurse Practitioner-Family 02/09/16 documented as of this encounter
--- OUTSIDE RECORDS SUMMARY | 2025-05-29 12:00 | XMS_ITS | Clinical Summary ---
Author Organization [facility] Address [address] [place] [address] Phone Care Team Providers Care Seasonal Clerk Name Role Phone Aissatou Barajas [facility] Primary Care Provider Allergies Active Allergy Reactions [...] Active fluticasone propionate (FLONASE) 50 mcg/actuation Nasl Highland, Suspension 1 Highland by Nasal route daily as needed. 08/21/20 [...] once daily 90 Tablet 08/26/20 24 Active semaglutide, weight loss, (WEGOVY) 2.4 mg/0.75 mL SubQ Pen Injector Subcutaneous (Inject under the skin) 0.75 mL once a week. 3 mL 5 09/10/19 25 Active OXcarbazepine (TRILEPTAL) 300 mg Oral Tablet Take 300 mg by mouth 2 times daily. 01/15/20 25 Active semaglutide, weight loss, 1 mg/0.5 mL SubQ Pen Injector Inject 1 mg under the skin once a week. Active LEVOthyroxine (SYNTHROID) 200 mcg Oral TabletIndications: Post-surgical hypothyroidism Take 1 Tablet by mouth daily. 90 Tablet 3 03/11/20 25 Active Active Problems Problem Noted Date [...] (03/23/2022): Added automatically from request for surgery [id number] Morbid obesity with BMI of 40.0-44.9, adult 02/24 Class 3 obesity 08/31/2021 Post-surgical hypothyroidism 11/09/2020 Abnormal thyroid blood test 11/09/2020 Encounters Date Type Department Care Team Description 03/11/2025 9:30 AM EDT Office Visit [facility] [address] [phone] Delonte Eden MD Class 3 obesity (Primary Dx); Post-surgical hypothyroidism; Elevated hemoglobin A1c 03/09/2025 Results Follow-Up [facility] [address] [phone] Delonte Eden MD T3 FREE, T4, FREE (THYROXINE), THYROID STIMULATING HORMONE, Additional followed-up results: 3 03/06/2025 11:05 AM EDT - 03/06/2025 11:59 PM EDT Hospital Encounter [facility] [address] [id number] Post-surgical hypothyroidism; Elevated hemoglobin A1c; Class 3 [...] cholecystectomy ; Surgeon: Chago Deal MD; Location: [facility] OR; Service: General UPPER GASTROINTESTINAL ENDOSCOPY [...] Maternal Grandfather Shmuel gomez Cancer Maternal Uncle Kody gomez Diabetes Mother Funmilayo ivan High Blood Pressure Mother Funmilayo ivan Obesity Mother Funmilayo ivan Stroke Mother Funmilayo ivan Diabetes Paternal Aunt Юлия Anesth Problems Neg Hx Relation Name Status Comments Brothreginaldo Bhatt Father Other Maternal Aunt Annalee catesman Maternal Grandfather Shmuel gomez Maternal Uncle Kody gomez Mother Funmilayo ivan Paternal Aunt Юлия Sister x1 Alive Social History Tobacco Use Types Packs/Day Years Used Date Smoking Tobacco: Every Day Cigarettes 1.3 38.1 Started: 02/08/1999 Smokeless Tobacco: Never Tobacco Cessation:Ready [...] on file Sexual Orientation Not on file Last Filed Vital Signs Vital Sign Reading Time Taken Comments Blood Pressure 110/70 03/11/2025 9:25 AM EDT Pulse 88 03/11/2025 9:25 AM EDT Temperature 36.3 C (97.3 F) 04/01/2024 10:00 AM EDT Respiratory Rate 18 03/11/2025 9:25 AM EDT Oxygen Saturation 98% 04/01/2024 10: 20 AM EDT Inhaled Oxygen Concentration - - Weight 122.1 kg (269 lb 1.6 oz) 03/11/2025 9:25 AM EDT Height 170.2 cm (5' 7 ) 03/11/2025 9:25 AM EDT Body Mass Index 42.15 03/11/2025 9:25 AM EDT Plan of Treatment Upcoming Encounters Date Type Department Care Team (Late st Contact Info) Description 09/14/2025 9:30 AM EST Office Visit [facility] [place] [address] [facility] [address] [place] [phone] Delonte Eden MD [address] [place] [address] Health Maintenance Due Date Last Done Comments Annual Wellness Exam 1986 Hepatitis B Vaccine (2 of 3 - 3-dose series) 06/25/2000 05/28/2000 Pneumococcal Vaccine 0-49 (1 of 2 - PCV) 2002 Cervical Cancer Screening 2004 Pap Smear 2004 HPV/Pap Cotest 2013 Breast Cancer Screening 2023 COVID-19 Vaccine ( - season) 2025 Influenza Vaccine (#1) 2025 , 07/15/2015, 05/22/2011, [...] <200 mg/dL 03/06/2025 4:43 PM EDT [facility] Comment: < 200 Desirable 200 - 239 Borderline High >= 240 High Triglyceride 157(H) <150 mg/dL 03/06/2025 4:43 PM EDT [facility] Comment: < 150 Normal 150 - 199 Borderline High 200 - 499 High >= 500 Very High HDL 32(L) >=40 mg/dL 03/06/2025 4:43 PM EDT [facility] Comment: > 60 Optimal 40 - 60 Acceptable < 40 Low LDL Calculated 66 <100 mg/dL 03/06/2025 4:43 PM EDT [facility] Comment: < 100 Optimal 100 - 129 Near or above optimal 130 - 159 Borderline High 160 - 189 High >= 190 Very High The National Institutes of Health (NIH) equation is used for all lipid panels that report calculated LDL (LDL-C). Non-HDL-C Calculated 93 <=129 mg/dL 03/06/2025 4:43 PM EDT [facility] Comment: <130 Desirable 130-159 Above Desirable 160-189 Borderline High 190-219 High >= 220 Very High Fasting Specimen? No None 025 4:43 PM EDT [facility] Comment:pt had one pancake Blood VENOUS BLOOD / Unknown Venipuncture / Unknown 03/06/2025 11:10 AM EDT 03/06/2025 11:10 AM EDT Delonte Eden MD CHEMISTRY ORDERABLES Final Re sult Performing Organization Address [facility] Phone Number [facility] [address] , [place] [address] * T3 FREE (03/06/2025 11:10 AM EDT) T3 Free 2.76 2.00 - 4.40 pg/mL 03/06/2025 4:49 PM EDT [facility] Blood VENOUS BLOOD / Unknown Venipuncture / Unknown 03/06/2025 11:10 AM EDT 03/06/2025 11:10 AM EDT Narrative [facility] - 03/06/2025 4:49 PM EDT Ingestion of sly doses of biotin (>5 mg/day) taken within 8 hours of drawing blood sample can interfere with this immunoassay test. Delonte Eden MD CHEMISTRY ORDERABLES Final Re sult Performing Organization Address [facility] Phone Number [facility] [address] , [place] [address] * (ABNORMAL) THYROID STIMULATING HORMONE (03/06/2025 11:10 AM EDT) TSH 0.097(L) 0.270 - 4.200 mcIU/mL 03/06/2025 4:49 PM EDT [facility] Blood VENOUS BLOOD / Unknown Venipuncture / Unknown 03/06/2025 11:10 AM EDT 03/06/2025 11:10 AM EDT Narrative [facility] - 03/06/2025 4:49 PM EDT Ingestion of sly doses of biotin (>5 mg/day) taken within 8 hours of drawing blood sample can interfere with this immunoassay test. Delonte Eden MD CHEMISTRY ORDERABLES Final Re sult Performing Organization Address [facility]/ZIP Co de Phone Number [facility] [address] , [place] [address] * T4, FREE (THYROXINE) (03/06/2025 11:10 AM EDT) Pathologist [facility] Free T4 1.61 0.80 - 1.80 ng/dL 03/06/2025 4:49 PM EDT [facility] Blood VENOUS BLOOD / Unknown Venipuncture / Unknown 03/06/2025 11:10 AM EDT 03/06/2025 11:10 AM EDT Narrative [facility] - 03/06/2025 4:49 PM EDT Ingestion of sly doses of biotin (>5 mg/day) taken within 8 hours of drawing blood sample can interfere with this immunoassay test. Delonte Eden MD CHEMISTRY ORDERABLES Final Re sult Performing Organization Address [facility]/ZIP Co de Phone Number [facility] [address] [place] [address] , [place] [address] * HEMOGLOBIN A1C (03/06/2025 11:10 AM EDT) Hgb A1C 5.4 4.2 - 5.6 % 03/06/2025 4:17 PM EDT [facility] Est. Avg Glucose 108 mg/dL 03/06/2025 4:17 PM EDT [facility] Blood VENOUS BLOOD / Unknown Venipuncture / Unknown 03/06/2025 11:10 AM EDT 03/06/2025 11:10 AM EDT Narrative [facility] - 03/06/2025 4:17 PM EDT REFERENCE RANGE: Normal: 4.0-5.6% Pre-diabetes: 5.7-6.4% Provisional diagnosis of diabetes: >6.4% Hgb F>10% and anything which shortens red cell survival, such as hemolytic anemia, or unstable hemoglobin variants such as HbSS, HbSC, or HbCC, will lower the HbA1c value associated with a given level of glycemic control. us Delonte Eden MD CHEMISTRY ORDERABLES Final Re sult [facility] [address] [facility], [place] [address] * COMPREHENSIVE METABOLIC PANEL (03/06/2025 11:10 AM [...] U/L 03/06/2025 4:43 PM EDT [facility] Alk Phos 70 36 - 123 U/L 03/06/2025 4:43 PM EDT [facility] eGFR (CKD-EPIcr 2020) 88 >=60 mL/min/1.7 3 m2 03/06/2025 4:43 PM EDT [facility] Comment:Estimated GFR was ca lculated using the CKD-EPIcr (2020) equation refit without race. The equation is recommended by the National Kidney Foundation - [place] [employer] Neph[employer] Task Force. Blood VENOUS BLOOD / Unknown Venipuncture / Unknown 03/06/2025 11:10 AM EDT 03/06/2025 11:10 AM EDT us Delonte Eden MD CHEMISTRY ORDERABLES Final Re sult [facility] [address] [facility] , [place] [address] from Last 3 Months Insurance Care Teams Seasonal Clerk Relationship Specialty Start Date End Date Aissatou Barajas FNP [address] [place] [phone] PCP - General Nurse Practitioner-Family 02/09/16
== END 2025-05-28 23:59 | disposition home or self-care (01) ==
LOC: LAB.DROPOF 05-29 11:58
PROVIDERS: PCP Nurse Practitioner Family; Visit Provider Nurse Practitioner Family
DX: R30.0 Dysuria (principal)
CPT/HCPCS: 87086

== ENCOUNTER 2025-08-06 09:45 | Outpatient (CLI) | payer OTHER, SELFPAY ==
[2025-08-06 14:52] LABS: Hematocrit 44.4 % (37.0-47.0); Hemoglobin 15.1 g/dL (12.2-16.2); Immature Granulocytes % 0.3 %; Mean Corpuscular HGB Conc 34.0 g/dL (31.8-35.4); Mean Corpuscular Hemoglobin 30.6 pg (27.0-31.2); Mean Corpuscular Volume 90.1 fl (81-99); Nucleated Red Blood Cells % 0 %; Platelet Count 320 K/mm3 (142-424); Red Blood Count 4.93 M/mm3 (4.20-5.40); Red Cell Distribution Width-SD 43.0 fL; White Blood Count 15.5 K/mm3 (4.8-10.8)
[2025-08-06 15:26] LABS: Iron 71 ug/dL (37-170)
[2025-08-06 15:40] LABS: Total Iron Binding Capacity 284 ug/dL (265-497)
[2025-08-06 15:58] LABS: Ferritin 27.7 ng/ml (6.24-137)
[2025-08-06 16:18] LABS: Vitamin B12 > 1000 pg/mL (239-931)
[2025-08-06 16:37] LABS: Hemoglobin A1C 4.9 % (4.0-6.0)
[2025-08-06 16:38] LABS: Folate 4.91 ng/mL
== END 2025-08-06 23:59 | disposition home or self-care (01) ==
LOC: LAB.DROPOF 08-07 14:10
PROVIDERS: PCP Nurse Practitioner Family; Visit Provider Nurse Practitioner Family
DX: D64.9 Anemia, unspecified (principal); E53.8 Deficiency of other specified B group vitamins; R73.09 Other abnormal glucose
CPT/HCPCS: 82607; 82728; 82746; 83036; 83540; 83550; 85025